=== PATIENT | female | born 1945 | race Caucasian/White ===

== ENCOUNTER 2024-01-07 18:55 | Inpatient (IN) | payer OTHER, SELFPAY ==
[2024-01-07 14:57] VITALS: BP 156/87; BMI 41.0
[2024-01-07 15:00] VITALS: BP 156/87
[2024-01-07 15:17] LABS: % Basophils 0.2 % (0-2); % Eosinophils 0.1 % (0-6); % Immature Granulocytes 0.7 % (0-0.5); % Lymphocytes 5.5 % (20.5-51.1); % Monocytes 5.8 % (1.7-9.3); % Neutrophils 87.7 % (42.2-75.2); Absolute Immature Granulocytes 0.1 10^3/uL (0-0.05); Absolute Monocytes 1.1 10^3/uL (0.1-0.6); Absolute Neutrophils 16.2 10^3/uL (1.4-6.5); Hematocrit 39.5 % (37.0-47.0); Hemoglobin 13.4 g/dL (12.0-16.0); Mean Corp Hgb Conc. 33.9 g/dL (33.0-37.0); Mean Corpuscular Hgb 29.4 pg (27.0-31.0); Mean Corpuscular Volume 86.6 fL (81.0-99.0); Mean Platelet Volume 9.5 fL (7.4-10.4); Nucleated Red Blood Cells % 0 %; Platelet Count 257 10^3/uL (130-400); Red Blood Cell Count 4.56 10^6/uL (4.20-5.40); White Blood Cell Count 18.4 10^3/uL (4.8-10.8)
[2024-01-07] MEDS: TYLENOL 650 MG PO ×2 (15:18→21:17)
[2024-01-07 15:29] LABS: ALT (SGPT) 17 U/L (0-35); AST (SGOT) 24 U/L (14-36); Albumin 4.3 g/dl (3.5-5.0); Alkaline Phosphatase 122 U/L (38-126); Blood Urea Nitrogen 24 mg/dl (7-17); Calcium 9.3 mg/dl (8.4-10.2); Carbon Dioxide 26 mmol/L (22-30); Chloride 92 mmol/L (98-107); Estimated Creatinine Clearance 45 ml/min; Glucose 200 mg/dl (70-99); Potassium 3.7 mmol/L (3.5-5.1); Sodium 130 mmol/L (135-145); Total Bilirubin 0.9 mg/dl (0.2-1.3); Total Protein 7.3 g/dl (6.3-8.2); eGFR 46.91
[2024-01-07 15:38] LABS: Lactic Acid 2.3 mmol/L (0.7-2.0)
[2024-01-07 15:43] LABS: COVID-19 Antigen Negative (Negative)
--- NOTE | 2024-01-07 16:01 | ED.GENMED ---
History of Present Illness
General
Chief Complaint: Cold/Flu/URI Symptoms
Source: patient
Time Seen by Provider: 01/07/24 15:07
Travel History
Have you had any contact with someone who has COVID-19?: No
Do you have any symptoms of coronavirus? Fever > 100 degrees, chills, cough, shortness of breath, sore throat, loss of taste or smell, muscle aches, or headache?: Yes
Symptoms:: cough, chills
History of Present Illness
History of Present Illness:
78-year-old female presents the emergency room complaining of feeling weak, achy for the past 2 days. Patient has also noted decreased appetite. She is tolerating liquids. She denies any abdominal pain, nausea, vomiting, diarrhea. She denies any
dysuria. She always has urinary frequency due to diuretic usage. She has a chronic cough. She does not think it is any different than normal. However she was noted to be hypoxic on room air and does not use oxygen at home. She was unaware she
had a fever
Past History
Past History
ED Past Medical History: Cancer (ovarian), COPD, HTN and Hypercholesterolemia
ED Past Surgical History: Orthopedic
Social History
Tobacco: Former smoker
Alcohol: None
Drug: None
Personal:
Living: with family
Employment: Retired
Family History
Family History: Other
Phy Exam
Physical Exam
Physical Exam:
General: Awake, Alert, Oriented X3. No acute distress.
Vitals: Febrile, O2 sat 90% on room air
Head: Atraumatic
Eyes: Pupils equal, EOMI
Throat: Airway intact, no exudates, dry mucosa
Neck: Trachea midline
Lungs: Clear and equal b/l
Heart: Regular rate, no murmurs
Abd: Soft, Nontender, No pulsatile mass
Neuro: Nonfocal
Skin: Warm, dry, no rash
Extremities: pulses equal b/l, no edema
Course
Orders/Labs/Results
Orders:
Orders
01/07/24 Dinner
Regular
At Your Request: Limited Participation
Does patient need a safe tray?: No
01/07/24 15:04
Electrocardiogram (*1) Urgent
Reason for Study: Fatigue / Weakness
EKG- Treatment ONCE
01/07/24 15:06
COVID-19 Antigen Urgent
Source: Nasal Swab
Complete Blood Count/With Diff Urgent
Comprehensive Metabolic Panel Urgent
Influenza A+B Rapid Molecular Urgent
SELENA Source: Nasal Swab
Specimen Description:
01/07/24 15:15
Lactic Acid Urgent
Blood Culture Urgent
SELENA Source: Blood/Venous
Specimen Description:
01/07/24 15:17
Acetaminophen [Tylenol] 650 mg .ROUTE .STK-MED ONE
01/07/24 15:18
Acetaminophen [Tylenol] 650 mg PO NOW STA
01/07/24 15:58
0.9% Sodium Chloride 500 ml [Nss] 500 ml IV BOLUS
CR Chest - 2 Views Urgent
Comment:
Reason For Exam: fever, cough, hypoxia
01/07/24 16:57
Urinalysis Reflex To Culture Urgent
Date Specimen was Collected: 01/07/24
Time Specimen was Collected: 15:50
Urine Microscopic Reflex Cult Urgent
Urine Culture Urgent
SELENA Source: U
Specimen Description:
Date Specimen was Collected: 01/07/24
Time Specimen was Collected: 15:50
01/07/24 18:05
CefTRIAXone [Rocephin] 1,000 mg IV NOW STA
01/07/24 18:26
Admit/Transfer Patient As Directed
Co-Sign Provider:
Level of Care: Inpatient admission
Assign to:: Medical/Surgical
Physician / Group: veldanda
Diagnosis: sepsis uti
Reason for Hospitalization: sepsis uti
Expected length of stay greater than two midnights?: Yes
ELOS- Estimated Length of Stay in days: 2
I certify the patient meets the requirements for IP care: Yes
01/07/24 18:27
Code Status As Directed
Resuscitation Status: Full Code
01/07/24 19:45
0.9% Sodium Chloride 1000 ml [Nss] 1,000 ml IV 100 mls/hr
Acetaminophen [Tylenol] 650 mg PO Q4HPRN PRN
Dextrose 50%-Water [Dextrose 50% Syringe] 12.5 grams IV [id number] PRN
Glucagon [GlucaGen] 1 mg IM PRN PRN
Ipratropium/Albuterol Sulfate [Duoneb] 3 ml INH R Q4HPRN PRN
01/07/24 19:45
Activity As Directed
Activity Level: As Tolerated
Bedside Glucose Monitoring As Directed
Frequency: AC&HS
Comment: Change to q6h if pt on TPN, tube feeding or not eating
Vital Signs As Directed
Frequency: Per unit guidelines
DX Deep Vein Thrombosis Video Routine
01/07/24 20:00
Calcium Carbonate [Oscal Vince 500] 500 mg PO BID
Heparin 5,000 units SC Q12
01/07/24 22:00
Pravastatin Sodium [Pravachol] 40 mg PO HS
01/08/24 06:00
Complete Blood Count/With Diff IN AM
Comprehensive Metabolic Panel IN AM
Glycohemoglobin (HgbA1c) IN AM
01/08/24 07:30
Insulin Aspart Corrective Low [Novolog Flexpen-Low Resistance] See Protocol SC AC
01/08/24 08:00
Allopurinol [Zyloprim] 100 mg PO DAILY
Aspirin Low Dose EC [Aspir Low (Enteric Coated)] 81 mg PO DAILY
Cholecalciferol (Vitamin D3) [VITAMIN D3 (cholecalciferol)] 25 mcg PO DAILY
Diltiazem Extended Release [Cardizem Cd] 120 mg PO DAILY
Docusate W/Senna [Senokot-S] 1 tablet PO DAILY
Metoprolol Xl [Toprol Xl] 100 mg PO DAILY
Potassium Chloride [KCl] 10 meq PO DAILY
Vit C/Vit E/Lutein/Min/[place]-3 [Ocuvite Softgel] 1 cap PO DAILY
01/08/24 18:00
CefTRIAXone [Rocephin] 1,000 mg IV Q24H
Abnormal Lab Results
01/07/24 01/07/24 01/07/24
15:06 15:15 16:57
WBC 18.4 H 10^3/uL
(4.8-10.8)
RDW 15.0 H %
(11.5-14.5)
Abs Immat Gran (auto) 0.1 H 10^3/uL
(0-0.05)
Absolute Neuts (auto) 16.2 H 10^3/uL
(1.4-6.5)
Absolute Lymphs (auto) 1.0 L 10^3/uL
(1.2-3.4)
Absolute Monos (auto) 1.1 H 10^3/uL
(0.1-0.6)
Immature Gran % 0.7 H %
(0-0.5)
Neutrophils % 87.7 H %
(42.2-75.2)
Lymphocytes % 5.5 L %
(20.5-51.1)
Sodium 130 L mmol/L
(135-145)
Chloride 92 L mmol/L
(98-107)
BUN 24 H mg/dl
(7-17)
Creatinine 1.2 H mg/dL
(0.6-1.0)
Glucose 200 H mg/dl
(70-99)
Lactic Acid 2.3 H mmol/L
(0.7-2.0)
Urine Nitrite (Reflex) Positive A
(Negative)
Leukocyte Esterase Rfl 2+ A
(Negative)
Urine WBC (Reflex) 50-60 A /HPF
(0-5)
Urine Bacteria (Reflex) Many A
(Negative)
01/07/24 15:06
01/07/24 15:06
Vital Signs
Initial and Last Documented VS:
Initial Vital Signs
Temp Pulse Resp BP Pulse Ox
103.2 F H 94 30 156/87 90
01/07/24 14:57 01/07/24 14:57 01/07/24 14:57 01/07/24 14:57 01/07/24 14:57
Last Documented Vital Signs
Temp Pulse Resp BP Pulse Ox
99.9 F 99 20 126/70 96
01/07/24 20:01 01/07/24 20:01 01/07/24 20:01 01/07/24 20:01 01/07/24 20:01
MDM/Problems Addressed
Differential Diagnosis Includes:
Pneumonia, viral syndrome, UTI
MDM/Problems Addressed:
Patient presents with significant fever of 104. Labs show a significant elevated white blood cell count of 18.4, chemistries show mildly elevated BUN/creatinine. Lactate is 2.3. Urinalysis highly suggestive of a urinary tract infection. Patient
started on IV Rocephin. She will require hospitalization given her high fever, infection lives alone and generalized weakness and inability to care for herself
Chronic conditions affecting care: HTN and COPD
*Radiology
Radiology exam reviewed: preliminary read by ED provider (Personally viewed the patient's chest x-ray see no acute disease)
*Pulse Oximetry
Patient hypoxic: no
*EKG
Interpretation: normal
Heart Rate: 94
Rate: normal
Rhythm: sinus
[place]: normal axis
Interval: normal interval
QRS Pattern: normal QRS
Ischemia: no ischemia
*Radiator Tester Interpretation
Rate: normal
Interpretation: normal
Rhythm: sinus
*Critical Care Note
Total Time (30-74mins, 75-104mins- exclusive of procedures): Not Applicable
Patient Management
Social determinants of health affecting care: Living situation (Lives alone)
Discussion with other providers: Hospitalist
ED Attending Note
-
Portions of this chart may have been created with voice recognition software.� Occasional wrong word or��sound alike� substitutions may have occurred due to the inherent limitations of voice recognition software.
Discharge Plan
Departure
Patient Disposition: Admit
Date of Disposition: 01/07/24
Time of Disposition: 18:06
Admit to: Med/Surg
Presentation/result/management discussed w/ accepting MD/DO: Hospitalist
Condition: Fair
Discharge Problem:
Acute UTI
Interventions
Interventions:
*Risk Screen - Suicide Last Done: 01/07/24 15:02
*General Assessment Last Done: 01/07/24 15:02
*Neglect/Abuse Screening Last Done: 01/07/24 15:02
ED- Fall Risk Assessment Last Done: 01/07/24 19:37
*ED COVID-19 Vaccine History Last Done: 01/07/24 15:02
*Nursing Disposition Last Done: 01/07/24 19:37
ED- Pulmonary Assessment Last Done: 01/07/24 15:25
Discharge Date and Time
Discharge Date/Time: 01/07/24 19:38
[2024-01-07] MEDS: NSS 500 IV (16:05)
[2024-01-07 17:08] LABS: Urine Albumin Trace (Neg - Trace); Urine Bilirubin Negative (Negative); Urine Character Clear (Clear); Urine Color Yellow; Urine Glucose Negative (Negative); Urine Ketone Negative (Negative); Urine Leukocyte 2+ (Negative); Urine Nitrite Positive (Negative); Urine Occult Blood Negative (Negative); Urine Urobilinogen Negative (Neg - 1+)
[2024-01-07 17:15] LABS: Urine Red Blood Cell 0-2 /HPF (0-2)
[2024-01-07 17:16] LABS: Urine Bacteria Many (Negative); Urine White Cell 50-60 /HPF (0-5)
[2024-01-07 18:00] VITALS: BP 127/96
[2024-01-07] MEDS: ROCEPHIN 1000 MG IV (18:14)
--- NOTE | 2024-01-07 18:30 | HPS.HSE ---
Addendum entered and electronically signed by Dallas Chappell MD 01/07/24 18:33:
Hypoxia could be from tachypnea from sepsis. Continue to treat UTI and wean oxygen.
Original Note:
Family Physician
-
Family Physician: NOT KNOW UNKNOWN - PT DOES
Chief Complaint
-
weakness
History of Present Illness
78-year-old female past medical history of CKD 3, diabetes, peripheral neuropathy, COPD, hypertension, hypercholesteremia, ovarian cancer, gout, presenting for weakness and generalized body achiness for the past 2 days as well as decreased appetite.
Denies any abdominal pain or nausea or vomiting or diarrhea. Denies any new urinary symptoms although she always has urinary frequency due to diuretic use. She has chronic cough which is unchanged from usual and dry. No sore throat or runny
nose. She was noted to be hypoxic on room air. She has chronic shortness of breath that is unchanged from usual. She was unaware of having a fever. No sick contacts.
Did have some chest aches and bilateral hip pain. She supposed to have right hip replaced she is recommended to lose weight before they do this.
She is a former smoker. Denies alcohol use.
Medical History
Past Medical History
Past Medical History: Reports Other (CKD 3, diabetes, peripheral neuropathy, COPD, hypertension, hypercholesteremia, ovarian cancer, gout)
Past Surgical History: Reports None
Social History
Tobacco: Former Smoker
Alcohol: None
Drug: None
Family History
Family History: Not pertinent
Allergies / Home Medications
Allergies reflects when Allergies were last updated in [employer].
Home Medications with original date entered in [employer]
Allergy/Medication List:
Allergies
Allergy/AdvReac Type Severity Reaction Status Date / Time
No Known Allergies Allergy Verified 05/23/23 18:38
Home Medications
furosemide 40 mg tablet 40 mg PO DAILY Fluid retention/Swelling 07/09/21
metformin 1,000 mg tablet 1,000 mg PO BID Diabetes 07/09/21
potassium chloride 10 mEq capsule,extended release 10 meq PO DAILY Electrolyte Repletion 07/09/21
pravastatin 40 mg tablet 40 mg PO HS High cholesterol 07/09/21
metoprolol succinate 100 mg tablet,extended release 24 hr 100 mg PO DAILY Blood pressure 05/23/22
diltiazem HCl 120 mg capsule,extended release 24 hr 120 mg PO DAILY 30 days #30 caps 05/28/22
albuterol sulfate 90 mcg/actuation aerosol inhaler 2 puff inhalation R Q6 PRN sob/wheezing 05/23/23
allopurinol 100 mg tablet 100 mg PO DAILY Gout 05/23/23
aspirin 81 mg tablet,delayed release 81 mg PO DAILY 01/07/24
budesonide 160 mcg-glycopyr 9 mcg-formot 4.8 mcg/actuation HFA inhaler (Breztri Aerosphere) 2 inh inhalation R BID 01/07/24
calcium carbonate 500 mg PO BID 01/07/24
cholecalciferol (vitamin D3) 25 mcg (1,000 unit) tablet (Vitamin D3) 25 mcg PO DAILY 01/07/24
cicbfftd-otc-KZ 0.4 mg-calcium 162 mg-iron 18 lf-jjhvvto-qyglyj tablet 1 tab PO DAILY 01/07/24
sennosides 8.6 mg-docusate sodium 50 mg tablet (Senna-S) 1 tab-cap PO DAILY 01/07/24
Review of Systems
-
History Source: Patient
A 12 point ROS was completed and negative except as noted: Yes
Constitutional: Reports No Symptoms
EENT: Reports No Symptoms
Respiratory: Reports No Symptoms
Cardiac: Reports No Symptoms
Abdomen/GI: Reports No Symptoms
: Reports No Symptoms
Musculoskeletal: Reports No Symptoms
Skin: Reports No Symptoms
Neurological: Reports No Symptoms
Endocrine: Reports No Symptoms
Hematologic/Lymphatic: Reports No Symptoms
Psych: Reports No Symptoms
Physical Exam
Vital Signs
Vital Signs
Temp Pulse Resp BP Pulse Ox
103.2 F H 87 22 127/96 93
01/07/24 14:57 01/07/24 18:15 01/07/24 18:15 01/07/24 18:00 01/07/24 18:15
Physical Exam
General: Well Developed, Well Nourished and No Apparent Distress
HEENT: NormoCephalic, Moist mucous membranes and Atraumatic
Respiratory: Clear
Cardiac: S1/S2 and Regular Rhythm; No Murmur or Rub
GI: Soft, Non Tender, Non Distended and Normal Bowel Sounds; No Organomegaly
Rectal: Deferred by Provider
Musculoskeletal: No Clubbing, No Cyanosis and No Edema
Skin: No Rash
Neuro: Nonfocal/grossly intact
Laboratory Results
-
01/07/24 15:06
01/07/24 15:06
Laboratory Results
Lactic Acid 2.3 mmol/L (0.7-2.0) H 01/07/24 15:15
Total Bilirubin 0.9 mg/dl (0.2-1.3) 01/07/24 15:06
AST 24 U/L (14-36) 01/07/24 15:06
ALT 17 U/L (0-35) 01/07/24 15:06
Alkaline Phosphatase 122 U/L (38-126) 01/07/24 15:06
Data Reviewed
-
Lab Data: Labs Reviewed by me
Old Records: Reviewed
Impression/Plan
-
IMPRESSION:
PLAN:
# Sepsis (fever, leukocytosis, tachycardia, tachypnea) secondary to urinary tract infection
-UA shows 50-60 WBC, positive nitrates, leukocyte esterase
-Check urine, blood cultures
-IV fluids
-Hold Lasix which she takes for lower extremity edema
-Ceftriaxone
-COVID influenza negative
-Chest x-ray unremarkable
COPD
-Lungs sound clear, not in COPD exacerbation
-CXR clear
-Currently requiring 2 L oxygen however
-DuoNebs every 6 hours as needed
-Continue inhalers
CKD 3
-Renal function at baseline at 1.2 creatinine
Type 2 diabetes
-Hold metformin
-Insulin sliding scale
Peripheral neuropathy
Essential hypertension
-Continue prophylactic aspirin
-Continue diltiazem
-Continue metoprolol
Hypercholesterolemia
-Continue statin
Ovarian cancer
Gout
-Continue allopurinol
Chronic lower extremity edema
-Hold Lasix
Full code
DVT prophylaxis�heparin
Regular diet
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
[2024-01-07 20:01] VITALS: BP 126/70; BMI 39.8
[2024-01-07] MEDS: NSS 1000 IV (21:06)
[2024-01-07] MEDS: PRAVACHOL 40 MG PO (21:17)
[2024-01-07] MEDS: HEPARIN 5000 UNITS SC (21:18)
[2024-01-07] MEDS: OSCAL CAL 500 500 MG PO (21:18)
[2024-01-07 21:20] LABS: Glucose - Point of Care 193 mg/dl (70-99)
[2024-01-07] MEDS: DESENEX/MITRAZOL/ZEASORB 1 APPLIC TOPICAL (23:00)
[2024-01-07 23:33] VITALS: BP 138/68
[2024-01-08] MEDS: SYMBICORT 160/4.5 MCG INHALER INH (00:51)
[2024-01-08 03:11] VITALS: BP 138/95
[2024-01-08 06:17] LABS: % Basophils 0.3 % (0-2); % Eosinophils 0.1 % (0-6); % Immature Granulocytes 0.5 % (0-0.5); % Neutrophils 77.1 % (42.2-75.2); Absolute Immature Granulocytes 0.1 10^3/uL (0-0.05); Absolute Lymphocytes 1.9 10^3/uL (1.2-3.4); Absolute Monocytes 1.3 10^3/uL (0.1-0.6); Absolute Neutrophils 11.5 10^3/uL (1.4-6.5); Hemoglobin 11.3 g/dL (12.0-16.0); Mean Corp Hgb Conc. 34.2 g/dL (33.0-37.0); Mean Corpuscular Hgb 29.5 pg (27.0-31.0); Mean Corpuscular Volume 86.2 fL (81.0-99.0); Mean Platelet Volume 9.9 fL (7.4-10.4); Nucleated Red Blood Cells % 0 %; Platelet Count 182 10^3/uL (130-400); Red Blood Cell Count 3.83 10^6/uL (4.20-5.40); Red Cell Dist. Width 14.8 % (11.5-14.5); White Blood Cell Count 14.9 10^3/uL (4.8-10.8)
[2024-01-08 06:40] LABS: ALT (SGPT) 12 U/L (0-35); AST (SGOT) 19 U/L (14-36); Albumin 3.4 g/dl (3.5-5.0); Alkaline Phosphatase 101 U/L (38-126); Blood Urea Nitrogen 26 mg/dl (7-17); Calcium 8.6 mg/dl (8.4-10.2); Carbon Dioxide 27 mmol/L (22-30); Chloride 98 mmol/L (98-107); Estimated Creatinine Clearance 44 ml/min; Glucose 157 mg/dl (70-99); Potassium 3.7 mmol/L (3.5-5.1); Sodium 131 mmol/L (135-145); Total Bilirubin 0.5 mg/dl (0.2-1.3); Total Protein 6.1 g/dl (6.3-8.2); eGFR 46.91
[2024-01-08 07:05] LABS: Glucose - Point of Care 168 mg/dl (70-99)
[2024-01-08] MEDS: SYMBICORT 160/4.5 MCG INHALER 2 PUFF INH ×2 (07:20→19:42)
[2024-01-08] MEDS: SPIRIVA RESPIMAT 2.5 MCG 2 PUFF INH (07:20)
[2024-01-08] MEDS: NSS 1000 IV (07:31)
[2024-01-08 08:14] VITALS: BP 124/56
[2024-01-08] MEDS: CARDIZEM CD 120 MG PO (08:56)
[2024-01-08] MEDS: TOPROL XL 100 MG PO (08:56)
[2024-01-08] MEDS: OSCAL CAL 500 500 MG PO ×2 (08:56→20:20)
[2024-01-08] MEDS: OCUVITE SOFTGEL 1 CAP PO (08:56)
[2024-01-08] MEDS: ASPIR LOW (ENTERIC COATED) 81 MG PO (08:56)
[2024-01-08] MEDS: NOVOLOG FLEXPEN-LOW RESISTANCE 1 UNITS SC (08:56)
[2024-01-08] MEDS: ZYLOPRIM 100 MG PO (08:56)
[2024-01-08] MEDS: SENOKOT-S 1 TABLET PO (08:56)
[2024-01-08] MEDS: VITAMIN D3 (cholecalciferol) 25 MCG PO (08:57)
[2024-01-08] MEDS: KCL 10 MEQ PO (08:57)
[2024-01-08] MEDS: HEPARIN 5000 UNITS SC ×2 (08:57→20:21)
[2024-01-08] MEDS: DESENEX/MITRAZOL/ZEASORB 1 APPLIC TOPICAL ×2 (08:59→21:43)
--- NOTE | 2024-01-08 09:01 | W.PN.HOSP.TC ---
Today's Communication/Plan
-
USS
Await Cx
Continue AB
Stop IVF
Assessment / Plan
Assessment / Plan
78-year-old female with generalized weakness and bodyaches for the 2 days decreased appetite.
Feels better
CVS: S1-S2 normal
Chest: CTA B/L
Abdomen: Soft, NT / Bowel sounds present
Extremities: No edema, normal pulses
# Sepsis present on admission
Likely source is UTI
Ceftriaxone
Await cultures blood and urine
Urine cultures with gram-negative rods
Hold Lasix
Status post gentle IV fluids
Leukocytosis better
Ultrasound of the kidneys and bladder
# Mild lactic acidosis-repeat lactate normal.
# COPD
Acute hypoxic respiratory insufficiency likely secondary to sepsis
Off oxygen
Continue Breztri or equivalent.
DuoNebs as needed
Chest x-ray clear
# CKD stage III
# Mild hyponatremia-stop IV fluids and watch
# Type 2 diabetes-hold metformin
Sliding scale coverage
HBA1C 6.4
# Peripheral neuropathy likely from diabetes
# Hypertension-continue metoprolol and diltiazem
# Hyperlipidemia-continue statin
# History of ovarian cancer
History of hysterectomy and bilateral oophorectomy
Follows up with Dr. Guo
CAT scan abdomen and pelvis 03/24/2023-stable
# Chronic lower extremity edema-hold Lasix now
# 7 mm left upper lobe pulmonary nodule, 1 mm left lower lobe pulmonary nodule, 1.5 cm aortopulmonary window lymph node and 2.8 cm right adrenal mass-likely benign per PET scan
# Gout-continue allopurinol
# Obesity BMI 39.7
# Ex-smoker
# DVT prophylaxis-subcutaneous heparin
# Full code
Discussed with nursing
Called Daughter- went to message .
Part of this note was created using voice recognition system. Occasional wrong word or��sound alike� substitutions may have inadvertently occurred due to the inherent limitations of voice recognition software. If noted kindly bring it to my
attention for correction.
Anticipated Discharge: 24 - 48 hours
Subjective/Interval History
-
Date of Service: January 08, 2024
Objective Data
-
Labs:
Laboratory Results
01/08/24
05:36
WBC 14.9 H
Hgb 11.3 L
Hct 33.0 L
Plt Count 182 D
Sodium 131 L
Potassium 3.7
Chloride 98
Carbon Dioxide 27
BUN 26 H
Creatinine 1.2 H
Glucose 157 H
Calcium 8.6
Total Bilirubin 0.5
AST 19
ALT 12
Alkaline Phosphatase 101
Vital Signs:
Vital Signs
Temp Pulse Resp BP Pulse Ox
98.7 F 85 20 124/56 95
01/08/24 08:14 01/08/24 08:14 01/08/24 08:14 01/08/24 08:14 01/08/24 08:14
I&O
01/07/24 01/08/24 01/09/24
06:59 06:59 06:59
Intake Total 1280 / 1280
Output Total 100 / 100
Balance 1180 / 1180
[2024-01-08 10:39] LABS: Magnesium 1.8 mg/dl (1.6-2.3)
[2024-01-08 11:34] LABS: Vitamin B12 396 pg/ml (239-931)
[2024-01-08 11:55] LABS: Glucose - Point of Care 140 mg/dl (70-99)
[2024-01-08 12:03] LABS: Glycohemoglobin (HgbA1c) 6.4 % (4.0-5.6)
[2024-01-08] MEDS: NOVOLOG FLEXPEN-LOW RESISTANCE SC ×2 (12:12→18:39)
[2024-01-08 15:30] VITALS: BP 122/56
[2024-01-08 16:52] LABS: Glucose - Point of Care 141 mg/dl (70-99)
[2024-01-08] MEDS: VITAMIN B-12 1000 MCG PO (18:39)
[2024-01-08] MEDS: ROCEPHIN 1000 MG IV (18:40)
[2024-01-08] MEDS: STERILE WATER FOR INJECTION 10 ML IV (18:41)
[2024-01-08] MEDS: FLUSH (NSS) 1 FLUSH IV (18:42)
[2024-01-08 21:32] LABS: Glucose - Point of Care 188 mg/dl (70-99)
[2024-01-08] MEDS: PRAVACHOL 40 MG PO (21:34)
[2024-01-08 23:48] VITALS: BP 129/58
[2024-01-09 06:12] LABS: Hematocrit 30.5 % (37.0-47.0); Hemoglobin 10.4 g/dL (12.0-16.0); Mean Corp Hgb Conc. 34.1 g/dL (33.0-37.0); Mean Corpuscular Hgb 29.3 pg (27.0-31.0); Mean Corpuscular Volume 85.9 fL (81.0-99.0); Mean Platelet Volume 10.1 fL (7.4-10.4); Platelet Count 210 10^3/uL (130-400); Red Blood Cell Count 3.55 10^6/uL (4.20-5.40); Red Cell Dist. Width 14.8 % (11.5-14.5); White Blood Cell Count 8.7 10^3/uL (4.8-10.8)
[2024-01-09 06:41] LABS: Blood Urea Nitrogen 19 mg/dl (7-17); Calcium 8.7 mg/dl (8.4-10.2); Carbon Dioxide 23 mmol/L (22-30); Chloride 102 mmol/L (98-107); Estimated Creatinine Clearance 58 ml/min; Glucose 165 mg/dl (70-99); Magnesium 1.9 mg/dl (1.6-2.3); Potassium 3.5 mmol/L (3.5-5.1); Sodium 132 mmol/L (135-145); eGFR > 60.00
[2024-01-09] MEDS: SPIRIVA RESPIMAT 2.5 MCG 2 PUFF INH (07:19)
[2024-01-09] MEDS: SYMBICORT 160/4.5 MCG INHALER 2 PUFF INH ×2 (07:19→20:07)
[2024-01-09 07:47] VITALS: BP 120/67
[2024-01-09 08:37] LABS: Glucose - Point of Care 173 mg/dl (70-99)
[2024-01-09] MEDS: NOVOLOG FLEXPEN-LOW RESISTANCE 1 UNITS SC ×3 (09:21→18:08)
[2024-01-09] MEDS: TYLENOL 650 MG PO ×2 (09:23→18:16)
[2024-01-09] MEDS: TOPROL XL 100 MG PO (09:24)
[2024-01-09] MEDS: OCUVITE SOFTGEL 1 CAP PO (09:24)
[2024-01-09] MEDS: CARDIZEM CD 120 MG PO (09:26)
[2024-01-09] MEDS: ASPIR LOW (ENTERIC COATED) 81 MG PO (09:26)
[2024-01-09] MEDS: VITAMIN B-12 1000 MCG PO (09:28)
[2024-01-09] MEDS: KCL 10 MEQ PO (09:29)
[2024-01-09] MEDS: SENOKOT-S 1 TABLET PO (09:30)
[2024-01-09] MEDS: VITAMIN D3 (cholecalciferol) 25 MCG PO (09:31)
[2024-01-09] MEDS: OSCAL CAL 500 500 MG PO ×2 (09:31→20:05)
[2024-01-09] MEDS: HEPARIN 5000 UNITS SC ×2 (09:32→20:05)
[2024-01-09] MEDS: ZYLOPRIM 100 MG PO (09:32)
[2024-01-09] MEDS: DESENEX/MITRAZOL/ZEASORB 1 APPLIC TOPICAL ×2 (09:33→20:05)
--- NOTE | 2024-01-09 11:12 | CM ---
CM following re: d/c planning
Chart reviewed
CM met with patient at bedside; IA completed
Pt states she and her daughter reside in a 1 story rancher with ramp access
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
Pt has previous SNF hx and has been to [facility], has recent hx with Kristie MATHEW, and has a spc for use as needed
Pt confirms prescription coverage and rx's are filled at [facility] on [facility] [address]
Pt PCP-[facility] and the patent sees Teri Matos PA-C and for maintenance medications pt states they are mail ordered through [facility]
No needs are anticipated once stable for d/c, CM will continue to watch for needs and request a script for a walker if needed
PLAN; d/c home no needs anticipated
[2024-01-09 11:30] VITALS: BP 147/71
[2024-01-09 12:03] LABS: Glucose - Point of Care 169 mg/dl (70-99)
[2024-01-09 12:20] VITALS: PULSE 75; O2SAT 91
--- NOTE | 2024-01-09 15:25 | W.PN.HOSP.TC ---
Today's Communication/Plan
-
CXR
Continue AB
Discharge planing
Assessment / Plan
Assessment / Plan
78-year-old female with generalized weakness and bodyaches for the 2 days decreased appetite.
Feels better
CVS: S1-S2 normal
Chest: CTA B/L
Abdomen: Soft, NT / Bowel sounds present
Extremities: No edema, normal pulses
# Sepsis present on admission
Likely source is Klebsiella UTI
Ceftriaxone to be continued
BC neg
Hold Lasix
Status post gentle IV fluids
Leukocytosis better
Ultrasound of the kidneys and bladder neg
# Mild lactic acidosis-repeat lactate normal.
# COPD
Acute hypoxic respiratory insufficiency likely secondary to sepsis
Off oxygen
Continue Breztri or equivalent.
DuoNebs as needed
Chest x-ray clear, pt says she has adeveloped a cough
Rpt CXR
# CKD stage III
# Mild hyponatremia-stop IV fluids and watch
Improving.
# Type 2 diabetes-restart metformin
Sliding scale coverage
HBA1C 6.4
# Peripheral neuropathy likely from diabetes
# Hypertension-continue metoprolol and diltiazem
# Hyperlipidemia-continue statin
# History of ovarian cancer
History of hysterectomy and bilateral oophorectomy
Follows up with Dr. Guo
CAT scan abdomen and pelvis 03/24/2023-stable
# Chronic lower extremity edema-hold Lasix now
# 7 mm left upper lobe pulmonary nodule, 1 mm left lower lobe pulmonary nodule, 1.5 cm aortopulmonary window lymph node and 2.8 cm right adrenal mass-likely benign per PET scan
# Gout-continue allopurinol
# Obesity BMI 39.7
# Ex-smoker
# DVT prophylaxis-subcutaneous heparin
# Full code
Discussed with nursing
Called daughter , went to message again
Part of this note was created using voice recognition system. Occasional wrong word or��sound alike� substitutions may have inadvertently occurred due to the inherent limitations of voice recognition software. If noted kindly bring it to my
attention for correction.
Anticipated Discharge: Within 24 hours
Subjective/Interval History
-
Date of Service: January 09, 2024
Objective Data
-
Labs:
Laboratory Results
01/09/24
05:27
WBC 8.7
Hgb 10.4 L
Hct 30.5 L
Plt Count 210
Sodium 132 L
Potassium 3.5
Chloride 102
Carbon Dioxide 23
BUN 19 H
Creatinine 0.9
Glucose 165 H
Calcium 8.7
Vital Signs:
Vital Signs
Temp Pulse Resp BP Pulse Ox
98.2 F 75 15 147/71 92
01/09/24 11:30 01/09/24 11:30 01/09/24 11:30 01/09/24 11:30 01/09/24 11:45
I&O
01/08/24 01/09/24 01/10/24
06:59 06:59 06:59
Intake Total 1280 / 1280 600 / 600
Output Total 100 / 100 300 / 300
Balance 1180 / 1180 300 / 300
[2024-01-09 15:30] VITALS: BP 128/68
[2024-01-09 17:39] LABS: Glucose - Point of Care 157 mg/dl (70-99)
[2024-01-09] MEDS: STERILE WATER FOR INJECTION 10 ML IV (18:07)
[2024-01-09] MEDS: ROCEPHIN 1000 MG IV (18:07)
[2024-01-09] MEDS: FLUSH (NSS) 2 FLUSH IV (18:08)
[2024-01-09] MEDS: PRAVACHOL 40 MG PO (20:05)
[2024-01-09 22:07] LABS: Glucose - Point of Care 178 mg/dl (70-99)
[2024-01-09 23:59] VITALS: BP 154/81
[2024-01-10 04:00] VITALS: BP 179/89
[2024-01-10] MEDS: TYLENOL 650 MG PO ×2 (04:59→17:37)
[2024-01-10 07:10] VITALS: BP 131/76
[2024-01-10 07:10] LABS: Glucose - Point of Care 185 mg/dl (70-99)
[2024-01-10] MEDS: SPIRIVA RESPIMAT 2.5 MCG 2 PUFF INH (07:33)
[2024-01-10] MEDS: SYMBICORT 160/4.5 MCG INHALER 2 PUFF INH ×2 (07:33→20:18)
[2024-01-10] MEDS: CARDIZEM CD 120 MG PO (09:36)
[2024-01-10] MEDS: OCUVITE SOFTGEL 1 CAP PO (09:41)
[2024-01-10] MEDS: ZYLOPRIM 100 MG PO (09:41)
[2024-01-10] MEDS: VITAMIN B-12 1000 MCG PO (09:41)
[2024-01-10] MEDS: TOPROL XL 100 MG PO (09:41)
[2024-01-10] MEDS: KCL 10 MEQ PO (09:42)
[2024-01-10] MEDS: ASPIR LOW (ENTERIC COATED) 81 MG PO (09:42)
[2024-01-10] MEDS: HEPARIN 5000 UNITS SC ×2 (09:42→20:50)
[2024-01-10] MEDS: VITAMIN D3 (cholecalciferol) 25 MCG PO (09:42)
[2024-01-10] MEDS: SENOKOT-S 1 TABLET PO (09:43)
[2024-01-10] MEDS: OSCAL CAL 500 500 MG PO ×2 (09:45→20:50)
[2024-01-10] MEDS: NOVOLOG FLEXPEN-LOW RESISTANCE 1 UNITS SC ×2 (09:54→13:09)
[2024-01-10] MEDS: DESENEX/MITRAZOL/ZEASORB 1 APPLIC TOPICAL ×2 (10:36→20:49)
--- NOTE | 2024-01-10 11:03 | W.PN.HOSP.TC ---
Addendum entered and electronically signed by Murray Vu MD 01/10/24 11:25:
Spoke to patient's other daughter Su Odom [phone]
Updated patient's chest x-ray, urine findings, oxygen
She stated that patient is not very active. She does not eat right. She drinks soda and soda water all day.
She is concerned that her sister who patient lives with works 2 jobs and sleeps during the daytime.
She requested a call from oncology social worker which I will pass on
Original Note:
Today's Communication/Plan
-
Restart Lasix
Labs
Watch patient
Wean oxygen as tolerated
Discharge planning hopefully discharge tomorrow.
Assessment / Plan
Assessment / Plan
78-year-old female with generalized weakness and bodyaches for the 2 days decreased appetite.
Has a ESTRADA
CVS: S1-S2 normal
Chest: CTA B/L
Abdomen: Soft, NT / Bowel sounds present
Extremities: No edema, normal pulses
# Sepsis present on admission
Likely source is Klebsiella UTI
CXR with small UL PNA
Ceftriaxone to be continued, Added Zithromax
BC neg
Status post gentle IV fluids, now restart Lasix
Leukocytosis better
Ultrasound of the kidneys and bladder neg
# Mild lactic acidosis-repeat lactate normal.
# COPD
Acute hypoxic respiratory insufficiency likely secondary to sepsis
Off oxygen
Continue Breztri or equivalent.
DuoNebs as needed
Chest x-ray with [facility] Infiltrate
Pt aware to repeat as OP in 4 weeks
# Acute hypoxic respiratory insufficiency
Wean oxygen as tolerated sleep study as outpatient
# CKD stage III
# Mild hyponatremia-stop IV fluids and watch
Improving.
# Type 2 diabetes-restart metformin
Sliding scale coverage
HBA1C 6.4
# Peripheral neuropathy likely from diabetes
# Hypertension-continue metoprolol and diltiazem
BP slightly high
Likely secondary to volume
Will add Lasix back
# Hyperlipidemia-continue statin
# History of ovarian cancer
History of hysterectomy and bilateral oophorectomy
Follows up with Dr. Guo
CAT scan abdomen and pelvis 03/24/2023-stable
# Chronic lower extremity edema- Lasix
# 7 mm left upper lobe pulmonary nodule, 1 mm left lower lobe pulmonary nodule, 1.5 cm aortopulmonary window lymph node and 2.8 cm right adrenal mass-likely benign per PET scan
# Gout-continue allopurinol
# Obesity BMI 39.7
# Ex-smoker
# DVT prophylaxis-subcutaneous heparin
# Full code
Discussed with nursing
Left a message again for daughter 3 days in a row today.
Part of this note was created using voice recognition system. Occasional wrong word or��sound alike� substitutions may have inadvertently occurred due to the inherent limitations of voice recognition software. If noted kindly bring it to my
attention for correction.
Anticipated Discharge: Within 24 hours
Subjective/Interval History
-
Date of Service: January 10, 2024
Objective Data
-
Labs:
Laboratory Results
01/10/24
10:49
WBC Pending
Hgb Pending
Hct Pending
Plt Count Pending
Sodium Pending
Potassium Pending
Chloride Pending
Carbon Dioxide Pending
BUN Pending
Creatinine Pending
Glucose Pending
Calcium Pending
Vital Signs:
Vital Signs
Temp Pulse Resp BP Pulse Ox
98.7 F 94 16 170/80 94
01/10/24 07:10 01/10/24 09:36 01/10/24 07:37 01/10/24 09:36 01/10/24 07:37
I&O
03/29/24 03/30/24 03/31/24
06:59 06:59 06:59
Intake Total 600 / 600 940 / 940 480 / 480
Output Total 300 / 300
Balance 300 / 300 940 / 940 480 / 480
[2024-01-10] MEDS: ZITHROMAX 500 MG PO (11:19)
[2024-01-10] MEDS: LASIX 40 MG PO (11:19)
--- NOTE | 2024-01-10 11:33 | CM ---
As requested from Attending, called patient's daughter, Su Odom @ [phone]
Daughter concerned that mother does not have sufficient support at home from the daughter who lives with her; and inquiring about home assistance options. Private Duty resources provided via text message.
Explained to daughter that PT recommending home health vs. no needs at this time.
CM will continue to follow PT recommendations for needs @ discharge
[2024-01-10 11:52] LABS: Hematocrit 34.5 % (37.0-47.0); Hemoglobin 11.8 g/dL (12.0-16.0); Mean Corp Hgb Conc. 34.2 g/dL (33.0-37.0); Mean Corpuscular Hgb 29.1 pg (27.0-31.0); Mean Platelet Volume 9.7 fL (7.4-10.4); Platelet Count 264 10^3/uL (130-400); Red Blood Cell Count 4.06 10^6/uL (4.20-5.40); Red Cell Dist. Width 14.7 % (11.5-14.5)
[2024-01-10 12:30] LABS: Glucose - Point of Care 161 mg/dl (70-99)
[2024-01-10 15:00] VITALS: BP 136/69
[2024-01-10 15:11] LABS: Blood Urea Nitrogen 22 mg/dl (7-17); Calcium 9.5 mg/dl (8.4-10.2); Carbon Dioxide 25 mmol/L (22-30); Chloride 101 mmol/L (98-107); Estimated Creatinine Clearance 58 ml/min; Glucose 119 mg/dl (70-99); Potassium 3.8 mmol/L (3.5-5.1); Sodium 134 mmol/L (135-145); eGFR > 60.00
[2024-01-10 16:41] LABS: Glucose - Point of Care 131 mg/dl (70-99)
[2024-01-10] MEDS: NOVOLOG FLEXPEN-LOW RESISTANCE SC (17:35)
[2024-01-10] MEDS: STERILE WATER FOR INJECTION 10 ML IV (17:36)
[2024-01-10] MEDS: ROCEPHIN 1000 MG IV (17:36)
[2024-01-10] MEDS: PRAVACHOL 40 MG PO (20:50)
[2024-01-10] MEDS: SENOKOT 17.1999999999999993 MG PO (20:50)
[2024-01-10 21:59] LABS: Glucose - Point of Care 162 mg/dl (70-99)
[2024-01-10 23:55] VITALS: BP 128/67
[2024-01-11 07:10] VITALS: BP 154/74
[2024-01-11] MEDS: SYMBICORT 160/4.5 MCG INHALER 2 PUFF INH ×2 (07:26→19:46)
[2024-01-11] MEDS: SPIRIVA RESPIMAT 2.5 MCG 2 PUFF INH (07:26)
[2024-01-11 07:45] LABS: Glucose - Point of Care 155 mg/dl (70-99)
[2024-01-11] MEDS: ZITHROMAX 500 MG PO (08:29)
[2024-01-11] MEDS: OCUVITE SOFTGEL 1 CAP PO (08:29)
[2024-01-11] MEDS: OSCAL CAL 500 500 MG PO ×2 (08:30→20:42)
[2024-01-11] MEDS: ZYLOPRIM 100 MG PO (08:30)
[2024-01-11] MEDS: SENOKOT-S 1 TABLET PO (08:30)
[2024-01-11] MEDS: KCL 10 MEQ PO (08:30)
[2024-01-11] MEDS: CARDIZEM CD 120 MG PO (08:30)
[2024-01-11] MEDS: DESENEX/MITRAZOL/ZEASORB 1 APPLIC TOPICAL ×2 (08:30→20:43)
[2024-01-11] MEDS: TOPROL XL 100 MG PO (08:30)
[2024-01-11] MEDS: VITAMIN D3 (cholecalciferol) 25 MCG PO (08:30)
[2024-01-11] MEDS: VITAMIN B-12 1000 MCG PO (08:30)
[2024-01-11] MEDS: ASPIR LOW (ENTERIC COATED) 81 MG PO (08:30)
[2024-01-11] MEDS: HEPARIN 5000 UNITS SC ×2 (08:31→20:43)
[2024-01-11] MEDS: NOVOLOG FLEXPEN-LOW RESISTANCE 1 UNITS SC (08:38)
[2024-01-11 11:56] LABS: Glucose - Point of Care 259 mg/dl (70-99)
[2024-01-11] MEDS: NOVOLOG FLEXPEN-LOW RESISTANCE 3 UNITS SC (12:49)
[2024-01-11 15:20] VITALS: BP 124/67
[2024-01-11 16:50] LABS: Glucose - Point of Care 127 mg/dl (70-99)
[2024-01-11] MEDS: NOVOLOG FLEXPEN-LOW RESISTANCE SC (17:00)
--- NOTE | 2024-01-11 17:28 | W.PN.HOSP.TC ---
Today's Communication/Plan
-
Lasix
Wean O2 as tolerated
Pulm eval in am
Assessment / Plan
Assessment / Plan
78-year-old female with generalized weakness and bodyaches for the 2 days decreased appetite.
Has a ESTRADA
CVS: S1-S2 normal
Chest: few rales
Abdomen: Soft, NT / Bowel sounds present
Extremities: No edema, normal pulses
# Sepsis present on admission
Likely source is Klebsiella UTI
CXR with small UL PNA
Ceftriaxone to be continued, Added Zithromax
BC neg
Status post gentle IV fluids, now restart Lasix
Leukocytosis better
Ultrasound of the kidneys and bladder neg
# Mild lactic acidosis-repeat lactate normal.
# COPD
Acute hypoxic respiratory insufficiency likely secondary to sepsis
On oxygen
Continue Breztri or equivalent.
DuoNebs added QID
Chest x-ray with CHI Infiltrate
Pt aware to repeat as OP in 4 weeks
# Acute hypoxic respiratory insufficiency
Wean oxygen as tolerated sleep study as outpatient
Pulm eval in am
# CKD stage III
# Mild hyponatremia-Lasix
FR
# Type 2 diabetes-restart metformin
Sliding scale coverage
HBA1C 6.4
Change diet to 2200
# Peripheral neuropathy likely from diabetes
# Hypertension-continue metoprolol and diltiazem
BP slightly high
Likely secondary to volume
Will add Lasix back
# Hyperlipidemia-continue statin
# History of ovarian cancer
History of hysterectomy and bilateral oophorectomy
Follows up with Dr. Guo
CAT scan abdomen and pelvis 03/24/2023-stable
# Chronic lower extremity edema- Lasix
# 7 mm left upper lobe pulmonary nodule, 1 mm left lower lobe pulmonary nodule, 1.5 cm aortopulmonary window lymph node and 2.8 cm right adrenal mass-likely benign per PET scan
# Gout-continue allopurinol
# Obesity BMI 39.7
# Ex-smoker
# DVT prophylaxis-subcutaneous heparin
# Full code
Discussed with nursing
Will call daughter tomorrow
Part of this note was created using voice recognition system. Occasional wrong word or��sound alike� substitutions may have inadvertently occurred due to the inherent limitations of voice recognition software. If noted kindly bring it to my
attention for correction.
Anticipated Discharge: 24 - 48 hours
Subjective/Interval History
-
Date of Service: January 11, 2024
Objective Data
-
Labs:
Laboratory Results
01/11/24
17:10
Sodium Pending
Potassium Pending
Chloride Pending
Carbon Dioxide Pending
BUN Pending
Creatinine Pending
Glucose Pending
Calcium Pending
Vital Signs:
Vital Signs
Temp Pulse Resp BP Pulse Ox
98.0 F 84 16 124/67 97
01/11/24 15:20 01/11/24 15:20 01/11/24 15:20 01/11/24 15:20 01/11/24 15:20
I&O
01/10/24 01/11/24 01/12/24
06:59 06:59 06:59
Intake Total 940 / 940 1440 / 1440
Balance 940 / 940 1440 / 1440
[2024-01-11] MEDS: STERILE WATER FOR INJECTION 10 ML IV (18:00)
[2024-01-11] MEDS: ROCEPHIN 1000 MG IV (18:02)
[2024-01-11 18:04] LABS: Blood Urea Nitrogen 26 mg/dl (7-17); Carbon Dioxide 28 mmol/L (22-30); Chloride 98 mmol/L (98-107); Estimated Creatinine Clearance 58 ml/min; Glucose 110 mg/dl (70-99); Potassium 4.5 mmol/L (3.5-5.1); Sodium 135 mmol/L (135-145); eGFR > 60.00
[2024-01-11] MEDS: LASIX 40 MG IV (18:07)
[2024-01-11] MEDS: DUONEB 3 ML INH (19:45)
[2024-01-11] MEDS: TYLENOL 650 MG PO (20:42)
[2024-01-11] MEDS: PRAVACHOL 40 MG PO (21:13)
[2024-01-11] MEDS: SENOKOT 17.1999999999999993 MG PO (21:13)
[2024-01-11 21:32] LABS: Glucose - Point of Care 231 mg/dl (70-99)
[2024-01-11 23:21] VITALS: BP 132/59
[2024-01-12 06:00] VITALS: BMI 39.6
[2024-01-12] MEDS: SPIRIVA RESPIMAT 2.5 MCG 2 PUFF INH (07:54)
[2024-01-12] MEDS: SYMBICORT 160/4.5 MCG INHALER 2 PUFF INH ×2 (07:54→20:01)
[2024-01-12] MEDS: DUONEB INH (08:03)
[2024-01-12] MEDS: VENTOLIN NEBULES 2.5 MG INH ×4 (08:08→20:01)
[2024-01-12 08:32] VITALS: BP 151/100
[2024-01-12 08:40] LABS: Blood Urea Nitrogen 26 mg/dl (7-17); Calcium 8.9 mg/dl (8.4-10.2); Carbon Dioxide 27 mmol/L (22-30); Chloride 100 mmol/L (98-107); Estimated Creatinine Clearance 58 ml/min; Glucose 153 mg/dl (70-99); Sodium 136 mmol/L (135-145); eGFR > 60.00
[2024-01-12 09:01] LABS: Glucose - Point of Care 253 mg/dl (70-99)
[2024-01-12] MEDS: NOVOLOG FLEXPEN-LOW RESISTANCE 1 UNITS SC ×2 (09:06→13:42)
[2024-01-12] MEDS: ASPIR LOW (ENTERIC COATED) 81 MG PO (09:07)
[2024-01-12] MEDS: CARDIZEM CD 120 MG PO (09:08)
[2024-01-12] MEDS: KCL 10 MEQ PO (09:08)
[2024-01-12] MEDS: DESENEX/MITRAZOL/ZEASORB 1 APPLIC TOPICAL ×2 (09:08→20:02)
[2024-01-12] MEDS: OSCAL CAL 500 500 MG PO ×2 (09:09→20:02)
[2024-01-12] MEDS: TOPROL XL 100 MG PO (09:09)
[2024-01-12] MEDS: OCUVITE SOFTGEL 1 CAP PO (09:09)
[2024-01-12] MEDS: LASIX 40 MG PO (09:09)
--- NOTE | 2024-01-12 09:09 | CON.PUL ---
Consultation
Consultation Request
Date/Time Consultation Requested: 01/12/2024-9 AM
Date/Time Consultation Performed: 01/12/24-9:15 AM
Requesting Provider: Hospitalist
Performing Provider: Dr. Quigley
Reason for Consultation: Shortness of breath, possible home oxygen
Medical History
-
Chief Complaint: Shortness of breath
History of Present Illness:
78-year-old female with underlying COPD followed by Dr. Rose, chronic kidney disease, diabetes, hypertension, hyperlipidemia, ovarian cancer presented with generalized weakness, decreased appetite and shortness of breath and pulmonary consulted for
ongoing oxygen requirements and possible home oxygen 01/12/24. Patient states that she continues to have some shortness of breath with exertion. She states that she is not on home oxygen. She offers no complaints of chest pain, chest tightness,
wheezing, hemoptysis, abdominal pain, nausea, weakness or increased lower extremity swelling.
Past Medical History
Past Medical History: None (COPD. Former smoker. Pulmonary nodule. Obesity. CKD-3. Diabetes. Diabetic neuropathy. Hypertension. Hyperlipidemia. Ovarian cancer. Gout. Appendectomy. Right elbow surgery. T2-5 fusion. Left hip replacement.
All teeth pulled.)
Social History
Tobacco: Former Smoker (22-zaei-cgke quit 12 years ago)
Alcohol: None
Drug: None
Living: With Family
Occupational Exposures: No known asbestos exposure
Environmental Exposures: No known tuberculosis exposure
Family History
Family History: Other (Father-lung cancer. Paternal aunt breast cancer.)
Allergies / Home Medications
Allergies
Allergy/AdvReac Type Severity Reaction Status Date / Time
No Known Allergies Allergy Verified 05/23/23 18:38
Home Medications
�Medication �Instructions �Recorded �Confirmed �Last Taken �Type
furosemide 40 mg tablet 40 mg PO DAILY Fluid 07/09/21 01/07/24 01/07/24 History
retention/Swelling
metformin 1,000 mg tablet 1,000 mg PO BID Diabetes 07/09/21 01/07/24 01/06/24 History
potassium chloride 10 mEq 10 meq PO DAILY Electrolyte 07/09/21 01/07/24 01/07/24 History
capsule,extended release Repletion
pravastatin 40 mg tablet 40 mg PO HS High cholesterol 07/09/21 01/07/24 01/06/24 History
metoprolol succinate 100 mg 100 mg PO DAILY Blood pressure 05/23/22 01/07/24 01/07/24 History
tablet,extended release 24 hr
diltiazem HCl 120 mg 120 mg PO DAILY 30 days #30 caps 05/28/22 01/07/24 01/07/24 Rx
capsule,extended release 24 hr
albuterol sulfate 90 mcg/actuation 2 puff inhalation R Q6 PRN 05/23/23 01/07/24 Unknown History
aerosol inhaler sob/wheezing
allopurinol 100 mg tablet 100 mg PO DAILY Gout 05/23/23 01/07/24 01/07/24 History
aspirin 81 mg tablet,delayed 81 mg PO DAILY Blood Clot 01/07/24 01/07/24 01/07/24 History
release Prevention/Tx
budesonide 160 mcg-glycopyr 9 2 inh inhalation R BID 01/07/24 01/07/24 01/07/24 History
mcg-formot 4.8 mcg/actuation HFA Lung/Breathing Issues
inhaler (Breztri Aerosphere)
calcium carbonate 500 mg PO BID Supplement 01/07/24 01/07/24 Unknown History
cholecalciferol (vitamin D3) 25 25 mcg PO DAILY Supplement 01/07/24 01/07/24 Unknown History
mcg (1,000 unit) tablet (Vitamin
D3)
nmlosmon-rlc-OS 0.4 mg-calcium 162 1 tab PO DAILY Supplement 01/07/24 01/07/24 Unknown History
mg-iron 18 jq-ajszxfn-frjray tablet
sennosides 8.6 mg-docusate sodium 1 tab-cap PO DAILY Constipation 01/07/24 01/07/24 Unknown History
50 mg tablet (Senna-S)
Review of Systems
-
Unable to Obtain full review of systems at this time due to: Other (Per HPI)
Vitals / Labs / Diagnostic Testing
Vital Signs
Temp Pulse Resp BP Pulse Ox
97.6 F 81 18 151/100 97
01/12/24 08:32 01/12/24 08:32 01/12/24 08:32 01/12/24 08:32 01/12/24 08:32
Lab Data
01/10/24 11:42
01/12/24 07:34
Microbiology
01/07/24 15:15 Blood/Venous Blood Culture - Preliminary
No Growth in 4 days- Final report to follow
01/07/24 16:57 Urine Urine Culture - Final
Klebsiella pneumoniae
Diagnostic Testing:
Physical Exam
-
Exam:
Well-nourished and well-developed in no apparent distress
HEENT-atraumatic, normocephalic
Neck-supple, no JVD, no bruit
Heart-regular rate and rhythm-no murmurs, rubs or gallops
Chest with diminished breath sounds, prolonged expiratory time, expiratory wheezes and rare crackles at the bases
Abdomen-soft, nontender, nondistended, no hepatosplenomegaly
Extremities-no cyanosis, clubbing, edema and good peripheral pulses
Integument-intact, no rashes, lesions or ecchymosis
Neurology-alert and oriented, nonfocal motor and sensory exam
Assessment
-
78-year-old female with underlying COPD followed by Dr. Rose, chronic kidney disease, diabetes, hypertension, hyperlipidemia, ovarian cancer presented with generalized weakness, decreased appetite and shortness of breath and pulmonary consulted for
ongoing oxygen requirements and possible home oxygen 01/12/24.
COPD with mild acute exacerbation
Leukocytosis-improved
Left apical iaeahdygb-wgvxfavwy-rillnzsn
Klqmjo-xymgounqim-fptgafaaps 11.8
Mild hyperglycemia
Conditions present prior to admission:
COPD.
Former smoker.
Pulmonary nodule-stable for over [address] March 2023
Obesity-EVARISTO suspected-repeatedly declined sleep study evaluation
CKD-3.
Diabetes.
Diabetic neuropathy.
Hypertension.
Hyperlipidemia.
Ovarian cancer.
Gout.
Appendectomy. Right elbow surgery. T2-5 fusion. Left hip replacement. All teeth pulled.
Plan
Respiratory decompensation likely related to pneumonia and mild COPD exacerbation
Supplemental oxygen-assess discharge supplemental oxygen needs prior to discharge-told patient she might require temporary oxygen at time of discharge
Incentive spirometry
Nebulizers
Inhalers-Symbicort and Spiriva continue
Mucolytic's
Aspiration precautions
Observe off intravenous steroids
Check cultures
Empiric antibiotics
Follow leukocytosis
Follow hemoglobin
Transfuse if needed
Monitor blood sugar
Metformin continues
Insulin supplementation as needed
DVT prophylaxis-on heparin
Nutrition
Early mobilization
Last seen by Dr. Rose/Alayna Loomis [employer] MA[employer]GER-12/29/2023
Diagnostic data:
Chest x-ray 01/07/2024-NAD
Chest x-ray 01/09/2024-left apical opacification suspicious for pneumonia
CT Chest/Abd/Pelvis 03/24/23: 7 mm noncalcified CHI nodule, stable dating back to 11/2020. 1 cm calcified perifissural granuloma at superior segment of LLL. 1.5 cm enlarged lymph node at anterior aspect of aorticopulmonary window, stable dating back
to 11/2020. Stability of 1 mm noncalcified pulmonary nodule at superior segment of the LLL. Minimal dependent atelectasis at the posterior lung bases with mild scarring in the posterior left lung base.�������
CT chest 07/19/2022-7 mm left upper lobe nodule stable. 2 mm nodule in the superior segment left lower lobe stable. Interval development of linear band of opacities associated with some interstitial thickening in the posterior medial left left base
likely atelectasis versus scarring.�������
Doppler BLE US-05/24/2022-no DVT�������
Chest x-ray 05/25/2022-- improved minimal right basilar opacity otherwise no findings.�������
PET scan 01/04/2022-minimal FDG uptake seen within 7.5 mm left upper lobe pulmonary nodule which does not meet criteria for malignancy. However evaluation may be limited due to small size of nodule and elevated serum glucose level.�������
CT chest 12/05/2021-7.5 mm left upper lobe nodule, slowly growing over multiple prior exams dating back to 2013. No new nodules identified. No evidence for metastatic disease in abdomen or pelvis.
PFT 12/29/23: FVC 2.21/91%, FEV1 1.49/82%, ratio 67%, no significant BD response, TLC 4.08/90%, DLCO 8.44/45%, DLCO/VA 2.28/55%. Mild obstruction. Moderately reduced diffusing capacity.�������
PFTs 10/22/22: FVC 2.21/86%, FEV1 1.47/77%, ratio 67%, no significant BD response, post BD FEV1 1.55/81%, TLC 4.63/100%, DLCO 8.61/45%. Mild obstruction. Moderately reduced diffusing capacity.������
Spirometry 06/12/2022 FVC 1.74, 68 Fev1 1.23, 64 ratio 67�������
PFT 2015 FVC 2.75, 98 Fev1 1.83, 86 ratio 67 DLCO 57.
Data Reviewed
-
PFT: Report reviewed by me
EKG: Report reviewed by me
Radiology: Image personally visualized and interpreted and Report reviewed by me
CT Scan: Image personally visualized and interpreted and Report reviewed by me
Ultrasound: Report reviewed by me
Medical Tests (Nuc Med, Echo etc): Report reviewed by me
Labs: Labs reviewed by me
Old Records: Reviewed
Total Time Spent with Patient (in minutes): 50
[2024-01-12] MEDS: VITAMIN D3 (cholecalciferol) 25 MCG PO (09:10)
[2024-01-12] MEDS: VITAMIN B-12 1000 MCG PO (09:10)
[2024-01-12] MEDS: ZITHROMAX 500 MG PO (09:10)
[2024-01-12] MEDS: ZYLOPRIM 100 MG PO (09:10)
[2024-01-12] MEDS: FLUSH (NSS) 1 FLUSH IV (09:11)
[2024-01-12] MEDS: HEPARIN 5000 UNITS SC ×2 (09:11→20:02)
[2024-01-12] MEDS: GLUCOPHAGE 1000 MG PO ×2 (09:15→17:39)
[2024-01-12] MEDS: SENOKOT-S 1 TABLET PO (09:16)
--- NOTE | 2024-01-12 10:21 | PTCARENOTE ---
Patient thought accu check was already done and ate a full breakfast. Accu check after she ate resulted at 253 however she had a lab draw at 0730 which resulted at 153, coverage given based on lab draw. Patient started back on her PO metformin.
[2024-01-12 12:22] LABS: Glucose - Point of Care 181 mg/dl (70-99)
[2024-01-12 12:55] VITALS: BP 153/76; PULSE 80; O2SAT 98
--- NOTE | 2024-01-12 14:52 | W.PN.HOSP.TC ---
Addendum entered and electronically signed by Murray Vu MD 01/12/24 15:22:
Spoke to Daughter Su . Updated.
She sats that once released and pt gets better , she doesn't follow rules.
Original Note:
Today's Communication/Plan
-
Wean Oxygen as tolerated.
May need Home O2
Home O2 eval in am
Discharge tomorrow
Assessment / Plan
Assessment / Plan
78-year-old female with generalized weakness and bodyaches for the 2 days decreased appetite.
CVS: S1-S2 normal
Chest: CTA, No wheezes
Abdomen: Soft, NT / Bowel sounds present
Extremities: No edema, normal pulses
# Sepsis present on admission
Likely source is Klebsiella UTI
CXR with small UL PNA
Ceftriaxone to be continued along with Zithromax
BC neg
Leukocytosis better
Ultrasound of the kidneys and bladder neg
# Mild lactic acidosis-repeat lactate normal.
# COPD
Acute hypoxic respiratory insufficiency likely secondary to sepsis
On oxygen
Continue Breztri or equivalent.
DuoNebs added QID
Chest x-ray with CHI Infiltrate
Pt aware to repeat as OP in 4 weeks
# Acute hypoxic respiratory insufficiency
Wean oxygen as tolerated sleep study as outpatient
Pulm eval appreciated
# CKD ruled out
# Mild hyponatremia-Lasix
FR
# Type 2 diabetes-metformin
Sliding scale coverage
HBA1C 6.4
Change diet to 2200
# Peripheral neuropathy likely from diabetes
# Hypertension-continue metoprolol and diltiazem
Lasix
# Hyperlipidemia-continue statin
# History of ovarian cancer
History of hysterectomy and bilateral oophorectomy
Follows up with Dr. Guo
CAT scan abdomen and pelvis 03/24/2023-stable
# Chronic lower extremity edema- Lasix
# 7 mm left upper lobe pulmonary nodule, 1 mm left lower lobe pulmonary nodule, 1.5 cm aortopulmonary window lymph node and 2.8 cm right adrenal mass-likely benign per PET scan
# Gout-continue allopurinol
# Obesity BMI 39.6
# Ex-smoker
# DVT prophylaxis-subcutaneous heparin
# Full code
Discussed with nursing
Part of this note was created using voice recognition system. Occasional wrong word or��sound alike� substitutions may have inadvertently occurred due to the inherent limitations of voice recognition software. If noted kindly bring it to my
attention for correction.
Anticipated Discharge: Within 24 hours
Subjective/Interval History
-
Date of Service: January 12, 2024
Objective Data
-
Labs:
Laboratory Results
01/12/24
07:34
Sodium 136
Potassium 4.0
Chloride 100
Carbon Dioxide 27
BUN 26 H
Creatinine 0.9
Glucose 153 H
Calcium 8.9
Vital Signs:
Vital Signs
Temp Pulse Resp BP Pulse Ox
97.6 F 83 16 151/100 97
01/12/24 08:32 01/12/24 11:23 01/12/24 11:23 01/12/24 08:32 01/12/24 11:23
I&O
01/11/24 01/12/24 01/13/24
06:59 06:59 06:59
Intake Total 1440 / 1440 960 / 960
Balance 1440 / 1440 960 / 960
[2024-01-12 15:57] VITALS: BP 117/65
[2024-01-12] MEDS: LASIX 20 MG IV (15:57)
--- NOTE | 2024-01-12 16:05 | CM ---
CM attempted bedside meeting with pt- meeting with respiratory
Plan to follow up on VN and possible home O2
Discharge Disposition home, watch for VN and home O2
[2024-01-12] MEDS: ROCEPHIN 1000 MG IV (17:40)
[2024-01-12] MEDS: STERILE WATER FOR INJECTION 10 ML IV (17:40)
[2024-01-12 17:44] LABS: Glucose - Point of Care 124 mg/dl (70-99)
[2024-01-12] MEDS: NOVOLOG FLEXPEN-LOW RESISTANCE SC (17:44)
[2024-01-12] MEDS: PRAVACHOL 40 MG PO (20:02)
[2024-01-12] MEDS: SENOKOT 17.1999999999999993 MG PO (20:02)
[2024-01-12 21:23] LABS: Glucose - Point of Care 228 mg/dl (70-99)
[2024-01-12 23:30] VITALS: BP 110/69
[2024-01-13 06:00] VITALS: BMI 39.3
[2024-01-13 07:04] LABS: Glucose - Point of Care 158 mg/dl (70-99)
[2024-01-13 07:10] VITALS: BP 125/71
[2024-01-13] MEDS: SPIRIVA RESPIMAT 2.5 MCG 2 PUFF INH (07:59)
[2024-01-13] MEDS: SYMBICORT 160/4.5 MCG INHALER 2 PUFF INH (07:59)
[2024-01-13] MEDS: VENTOLIN NEBULES 2.5 MG INH ×3 (08:00→15:22)
[2024-01-13] MEDS: NOVOLOG FLEXPEN-LOW RESISTANCE 1 UNITS SC (08:33)
[2024-01-13] MEDS: KCL 10 MEQ PO (08:34)
[2024-01-13] MEDS: ZITHROMAX 500 MG PO (08:34)
[2024-01-13] MEDS: ASPIR LOW (ENTERIC COATED) 81 MG PO (08:35)
[2024-01-13] MEDS: GLUCOPHAGE 1000 MG PO (08:35)
[2024-01-13] MEDS: OSCAL CAL 500 500 MG PO (08:35)
[2024-01-13] MEDS: SENOKOT-S 1 TABLET PO (08:35)
[2024-01-13] MEDS: TOPROL XL 100 MG PO (08:35)
[2024-01-13] MEDS: LASIX 40 MG PO (08:35)
[2024-01-13] MEDS: VITAMIN D3 (cholecalciferol) 25 MCG PO (08:36)
[2024-01-13] MEDS: VITAMIN B-12 1000 MCG PO (08:36)
[2024-01-13] MEDS: OCUVITE SOFTGEL 1 CAP PO (08:36)
[2024-01-13] MEDS: HEPARIN 5000 UNITS SC (08:36)
[2024-01-13] MEDS: ZYLOPRIM 100 MG PO (08:36)
[2024-01-13] MEDS: CARDIZEM CD 120 MG PO (08:36)
[2024-01-13] MEDS: DESENEX/MITRAZOL/ZEASORB 1 APPLIC TOPICAL (08:44)
[2024-01-13] MEDS: TYLENOL 650 MG PO (08:55)
--- NOTE | 2024-01-13 09:24 | W.PN.PUL.V3 ---
Today's Communication / Plan
-
Wean oxygen
Increase activity
CT chest with pulmonary embolism order call to be complete
Assessment
-
78-year-old female with underlying COPD followed by Dr. Rose, chronic kidney disease, diabetes, hypertension, hyperlipidemia, ovarian cancer presented with generalized weakness, decreased appetite and shortness of breath and pulmonary consulted for
ongoing oxygen requirements and possible home oxygen 01/12/24.
COPD with mild acute exacerbation
Leukocytosis-improved
Left apical jxdrpatsn-ajfimdsms-mhpjyvtj
Cwgpaz-ipzqyqewui-ezkjedrxjc 11.8
Mild hyperglycemia
Conditions present prior to admission:
COPD.
Former smoker.
Pulmonary nodule-stable for over [address] March 2023
Obesity-EVARISTO suspected-repeatedly declined sleep study evaluation
CKD-3.
Diabetes.
Diabetic neuropathy.
Hypertension.
Hyperlipidemia.
Ovarian cancer.
Gout.
Appendectomy. Right elbow surgery. T2-5 fusion. Left hip replacement. All teeth pulled.
Plan
Respiratory decompensation likely related to pneumonia and mild COPD exacerbation
Supplemental oxygen-assess discharge supplemental oxygen needs prior to discharge-told patient she might require temporary oxygen at time of discharge
Incentive spirometry encouraged
Nebulizers
Inhalers-Symbicort and Spiriva continue
Mucolytic's
Aspiration precautions
Observe off intravenous steroids
Chest with diminished breath sounds but no active wheezing and no clear explanation for increased FiO2 requirements
Check CT with PE protocol to be complete
Cultures reviewed
Blood cultures negative
Urine culture with Klebsiella
Empiric antibiotics
Follow leukocytosis
Follow hemoglobin
Transfuse if needed
Monitor blood sugar
Metformin continues
Insulin supplementation as needed
DVT prophylaxis-on heparin
Nutrition
Early mobilization
Reviewed with nursing and primary team
Last seen by Dr. Roes/Alayna Loomis [employer]IST-12/29/2023
Diagnostic data:
Chest x-ray 01/07/2024-NAD
Chest x-ray 01/09/2024-left apical opacification suspicious for pneumonia
CT Chest/Abd/Pelvis 03/24/23: 7 mm noncalcified CHI nodule, stable dating back to 11/2020. 1 cm calcified perifissural granuloma at superior segment of LLL. 1.5 cm enlarged lymph node at anterior aspect of aorticopulmonary window, stable dating back
to 11/2020. Stability of 1 mm noncalcified pulmonary nodule at superior segment of the LLL. Minimal dependent atelectasis at the posterior lung bases with mild scarring in the posterior left lung base.�������
CT chest 07/19/2022-7 mm left upper lobe nodule stable. 2 mm nodule in the superior segment left lower lobe stable. Interval development of linear band of opacities associated with some interstitial thickening in the posterior medial left left base
likely atelectasis versus scarring.�������
Doppler BLE US-05/24/2022-no DVT�������
Chest x-ray 05/25/2022-- improved minimal right basilar opacity otherwise no findings.�������
PET scan 01/04/2022-minimal FDG uptake seen within 7.5 mm left upper lobe pulmonary nodule which does not meet criteria for malignancy. However evaluation may be limited due to small size of nodule and elevated serum glucose level.�������
CT chest 12/05/2021-7.5 mm left upper lobe nodule, slowly growing over multiple prior exams dating back to 2014. No new nodules identified. No evidence for metastatic disease in abdomen or pelvis.
PFT 12/29/23: FVC 2.21/91%, FEV1 1.49/82%, ratio 67%, no significant BD response, TLC 4.08/90%, DLCO 8.44/45%, DLCO/VA 2.28/55%. Mild obstruction. Moderately reduced diffusing capacity.�������
PFTs 10/22/22: FVC 2.21/86%, FEV1 1.47/77%, ratio 67%, no significant BD response, post BD FEV1 1.55/81%, TLC 4.63/100%, DLCO 8.61/45%. Mild obstruction. Moderately reduced diffusing capacity.������
Spirometry 06/12/2022 FVC 1.74, 68 Fev1 1.23, 64 ratio 67�������
PFT 2016 FVC 2.75, 98 Fev1 1.83, 86 ratio 67 DLCO 57.
Subjective Data
-
Date of Service:
Date of Service: January 13, 2024
Chief Complaint: Pulmonary Follow Up and Dyspnea Follow Up
Subjective:
Continues to require oxygen, no chest congestion, wheezing, productive cough or abdominal pain, his chronic lower extremity swelling without change
Review of Systems
General: Other (Per HPI)
Objective Data
Data Reviewed
Vital Signs / I&O:
Vital Signs
Temp Pulse Resp BP Pulse Ox
97.7 F 85 16 125/71 96
01/13/24 07:10 01/13/24 08:36 01/13/24 08:05 01/13/24 08:36 01/13/24 08:05
Intake and Output
01/12/24 01/13/24 01/14/24
06:59 06:59 06:59
Intake Total 960 / 960 1080 / 1080
Balance 960 / 960 1080 / 1080
SaO2: 96
Nasal Cannula flow liters per minute: 2
Physical Exam
General: Respiratory Distress (n) and Comfortable
HEENT: Normocephalic, Anicteric and Moist Mucous Membranes
Cardiovascular: Regular Rhythm
Respiratory: Wheeze (n), Crackles (n), Rhonchi (n), Non-Labored Respirations, Accessory Resp Muscle Use (n) and Stridor
GI: Soft, Non Distended and Non Tender
Neurology: Awake, Alert and No Motor Deficits
Skin: Warm, Good Color, Cyanosis (n), Jaundice (n) and Rash (n)
Labs/Micro/Reports
Lab Data
01/10/24 11:42
01/12/24 07:34
Microbiology
01/07/24 15:15 Blood/Venous Blood Culture - Final
No Growth - Final Report
[2024-01-13 11:45] LABS: Glucose - Point of Care 233 mg/dl (70-99)
[2024-01-13] MEDS: NOVOLOG FLEXPEN-LOW RESISTANCE 2 UNITS SC (12:14)
--- NOTE | 2024-01-13 12:37 | VNURNOTE ---
Home Health Liaison met with patient at 1130 to discuss [facility] nurse/therapy, visits, schedule and homebound status. Patient is agreeable and understands that visits at home will be 2-3 x per week to assess and teach medical management.
[facility] brochure provided with contact information. Patient is aware that [facility] will contact her for start of care in 1-2 days after discharge from .
[facility] referral completed in [facility].
New home O2 ordered w/[facility] by CM.
--- NOTE | 2024-01-13 14:05 | W.PN.HOSP.TC ---
Addendum entered and electronically signed by Murray Vu MD 01/13/24 14:55:
Home O2 evaluation from yesterday noted. Patient has a co-pay for the oxygen. Therefore requested another oxygen evaluation. Saturations do not qualify for home oxygen today.
Patient stated that her entire life she gets short of breath with exertion and that is normal for her if she stops or sits down and ' catch my breath I am fine.'
I discussed this with patient's daughter Su. Daughter stated that patient has had fevers of oxygen being at home saying that' it can blow peoples houses.'
Pt awar about benefits /risks of Oxygen and not having it.
She is aware that if patient needs to follow-up with pulmonary in 1 to 2 weeks and at that time they will retest her for her needs.
We discussed about CT lung findings and the need for follow-up on the enlarged lymph node.
All questions answered.
Discussed with Dr. Quigley. Also okay for patient to be discharged.
Discharge coordination time 45 minutes
Original Note:
Today's Communication/Plan
-
Await CT chest
Discharge home today if OK with Pulmonary also
Assessment / Plan
Assessment / Plan
78-year-old female with generalized weakness and bodyaches for the 2 days decreased appetite.
CVS: S1-S2 normal
Chest: CTA, No wheezes
Abdomen: Soft, NT / Bowel sounds present
Extremities: No edema, normal pulses
# Sepsis present on admission
Likely source is Klebsiella UTI
CXR with small UL PNA
Ceftriaxone and Zithromax
BC neg
Leukocytosis better
Ultrasound of the kidneys and bladder neg
# Mild lactic acidosis-repeat lactate normal.
# COPD
Acute hypoxic respiratory insufficiency likely secondary to sepsis
Off oxygen
Did not qualify for Home O2 today
Continue Breztri or equivalent.
DuoNebs added QID
Chest x-ray with [facility]I Infiltrate
Pt aware to repeat as OP in [address] Chest PE study done -Pending
# Acute hypoxic respiratory insufficiency
Off O2
# CKD ruled out
# Mild hyponatremia-Lasix
FR
# Type 2 diabetes-metformin
Sliding scale coverage
HBA1C 6.4
Change diet to 2200
# Peripheral neuropathy likely from diabetes
# Hypertension-continue metoprolol and diltiazem
Lasix
# Hyperlipidemia-continue statin
# History of ovarian cancer
History of hysterectomy and bilateral oophorectomy
Follows up with Dr. Guo
CAT scan abdomen and pelvis 03/24/2023-stable
# Chronic lower extremity edema- Lasix
# 7 mm left upper lobe pulmonary nodule, 1 mm left lower lobe pulmonary nodule, 1.5 cm aortopulmonary window lymph node and 2.8 cm right adrenal mass-likely benign per PET scan
# Gout-continue allopurinol
# Obesity BMI 39.6
# Ex-smoker
# DVT prophylaxis-subcutaneous heparin
# Full code
Discussed with nursing
D/W Cse management
D/W Daughter yesterday
D/W Pulm
Part of this note was created using voice recognition system. Occasional wrong word or��sound alike� substitutions may have inadvertently occurred due to the inherent limitations of voice recognition software. If noted kindly bring it to my
attention for correction.
Anticipated Discharge: Today
Subjective/Interval History
-
Date of Service: January 13, 2024
Objective Data
-
Vital Signs:
Vital Signs
Temp Pulse Resp BP Pulse Ox
97.7 F 76 16 125/71 98
01/13/24 07:10 01/13/24 11:29 01/13/24 11:29 01/13/24 08:36 01/13/24 09:34
I&O
01/12/24 01/13/24 01/14/24
06:59 06:59 06:59
Intake Total 960 / 960 1080 / 1080
Balance 960 / 960 1080 / 1080
--- NOTE | 2024-01-13 14:45 | CM ---
CM reviewed pt with Dr Vu- ADC today pending pulm clearance
Based on home eval from 01/11, pt qualifies for 2L of O2
Bedside meeting with pt to review planning
VN recommendations and pt in agreement with referral to VN
Pt also in agreement with referral to [facility]
Script and clinicals faxed to [facility]- pt copay of $15-20 monthly
Pt does not want to pay copay and requested for oxygen need to be readdressed
Home eval today completed and per eval today, pt does not qualify for home O2
Pt aware
IMM verbally completed- copy provided
Discharge Disposition- home with VN- family transport
--- NOTE | 2024-01-13 14:56 | W.DS.TRANS ---
Addendum entered and electronically signed by Murray Vu MD 01/13/24 15:13:
Dictation- [id number]
Original Note:
DC Summary - [employer]
-
Discharge Instructions:
Discharge Diagnosis/Procedures Pneumonia, UTI, COPD, dehydration, diabetes,
peripheral neuropathy, hypertension, high
cholesterol, history of ovarian cancer,
pulmonary nodule, gout
Diet Restrict fluids to 64 oz,Diabetic, Carb
Controlled
Activity As tolerated
Driving Restrictions No driving
Others Tests Chest X ray 4-6 weeks. Urinalysis in 2 weeks.
Other Services VN
Instructions:
Stand-Alone Forms:
Changes to Home Medications: Yes
Discharge Medications:
DC Medications w/original date entered in [employer]
furosemide 40 mg tablet 40 mg PO DAILY Fluid retention/Swelling 07/09/21
metformin 1,000 mg tablet 1,000 mg PO BID Diabetes 07/09/21
potassium chloride 10 mEq capsule,extended release 10 meq PO DAILY Electrolyte Repletion 07/09/21
pravastatin 40 mg tablet 40 mg PO HS High cholesterol 07/09/21
metoprolol succinate 100 mg tablet,extended release 24 hr 100 mg PO DAILY Blood pressure 05/23/22
albuterol sulfate 90 mcg/actuation aerosol inhaler 2 puff inhalation R Q6 PRN sob/wheezing 05/23/23
allopurinol 100 mg tablet 100 mg PO DAILY Gout 05/23/23
aspirin 81 mg tablet,delayed release 81 mg PO DAILY Blood Clot Prevention/Tx 01/07/24
budesonide 160 mcg-glycopyr 9 mcg-formot 4.8 mcg/actuation HFA inhaler (Breztri Aerosphere) 2 inh inhalation R BID Lung/Breathing Issues 01/07/24
calcium carbonate 500 mg PO BID Supplement 01/07/24
cholecalciferol (vitamin D3) 25 mcg (1,000 unit) tablet (Vitamin D3) 25 mcg PO DAILY Supplement 01/07/24
ujwfmiuy-psg-QB 0.4 mg-calcium 162 mg-iron 18 lc-daydwmu-mfxkfs tablet 1 tab PO DAILY Supplement 01/07/24
sennosides 8.6 mg-docusate sodium 50 mg tablet (Senna-S) 1 tab-cap PO DAILY Constipation 01/07/24
azithromycin 250 mg tablet 500 mg (2 x 250 mg) PO DAILY Lung/breathing issues #2 tabs 01/12/24
cefuroxime axetil 500 mg tablet 500 mg PO BID Infection #6 tabs 01/12/24
cyanocobalamin (vitamin B-12) 1,000 mcg tablet 1,000 mcg PO DAILY low normal B12 #0 tabs 01/12/24
diltiazem HCl 120 mg capsule,extended release 24 hr 120 mg PO DAILY Arrhythmia 30 days #30 caps 01/12/24
Home Medication Changes
new
azithromycin 250 mg tablet 500 mg (2 x 250 mg) PO DAILY Lung/breathing issues #2 tabs 01/12/24
cefuroxime axetil 500 mg tablet 500 mg PO BID Infection #6 tabs 01/12/24
cyanocobalamin (vitamin B-12) 1,000 mcg tablet 1,000 mcg PO DAILY low normal B12 #0 tabs 01/12/24
Pending Results: No
[2024-01-13 15:00] VITALS: BP 164/70
--- NOTE | 2024-01-13 15:19 | PTCARENOTE ---
Reviewed discharge instructions with patient. Patient verbalizes understanding of all teaching. Patient understands she needs a UA in two weeks and a sleep study as an outpatient. IV removed. Patient will be transported home by daughter.
== END 2024-01-13 16:06 | disposition home health service (06) | DRG 871 ==
LOC: 4 EAST ACU 18:55
PROVIDERS: Student in an Organized Health Care Education/Training Program; ADMITTING PHYSICIAN Hospitalist; ATTENDING PHYSICIAN Hospitalist; CONSULT PHYSICIAN Internal Medicine Critical Care Medicine; EMERGENCY PHYSICIAN Emergency Medicine
DX: A41.9 Sepsis, unspecified organism (principal); J18.9 Pneumonia, unspecified organism; N39.0 Urinary tract infection, site not specified; J44.1 Chronic obstructive pulmonary disease with (acute) exacerbation; J44.0 Chronic obstructive pulmonary disease with (acute) lower respiratory infection; E87.1 Hypo-osmolality and hyponatremia; E87.20 Acidosis, unspecified; Z11.52 Encounter for screening for COVID-19; Z87.891 Personal history of nicotine dependence; R09.02 Hypoxemia; R06.89 Other abnormalities of breathing; E11.65 Type 2 diabetes mellitus with hyperglycemia; I12.9 Hypertensive chronic kidney disease with stage 1 through stage 4 chronic kidney disease, or unspecified chronic kidney disease; N18.30 Chronic kidney disease, stage 3 unspecified; E11.22 Type 2 diabetes mellitus with diabetic chronic kidney disease; E78.00 Pure hypercholesterolemia, unspecified; M10.9 Gout, unspecified; E66.9 Obesity, unspecified; Z68.39 Body mass index [BMI] 39.0-39.9, adult; E11.42 Type 2 diabetes mellitus with diabetic polyneuropathy; B96.1 Klebsiella pneumoniae [K. pneumoniae] as the cause of diseases classified elsewhere
CPT/HCPCS: 51701; 71046; 71275; 76770; 80048; 80053; 81003; 81015; 82607; 82962; 83036; 83605; 83735; 85025; 85027; 87040; 87077; 87086; 87186; 87502; 87811; 93005; 94640; 96374; 97116; 97162; 99285; Q9967

== ENCOUNTER → 2024-02-12 10:33 | Outpatient (REF) | payer OTHER, SELFPAY ==
[2024-02-12 11:30] LABS: Urine Albumin Negative (Neg - Trace); Urine Bilirubin Negative (Negative); Urine Character Slightly Cloudy (Clear); Urine Color Yellow; Urine Glucose Negative (Negative); Urine Ketone Negative (Negative); Urine Leukocyte 1+ (Negative); Urine Nitrite Negative (Negative); Urine Occult Blood Negative (Negative); Urine Specific Gravity 1.015 (<1.030); Urine Urobilinogen Negative (Neg - 1+); Urine pH 6.5 (5.0-9.0)
[2024-02-12 11:33] LABS: % Basophils 0.5 % (0-2); % Immature Granulocytes 0.3 % (0-0.5); % Lymphocytes 33.3 % (20.5-51.1); % Monocytes 9.5 % (1.7-9.3); % Neutrophils 54.4 % (42.2-75.2); Absolute Eosinophils 0.1 10^3/uL (0-0.7); Absolute Lymphocytes 2.2 10^3/uL (1.2-3.4); Absolute Monocytes 0.6 10^3/uL (0.1-0.6); Absolute Neutrophils 3.6 10^3/uL (1.4-6.5); Hematocrit 37.6 % (37.0-47.0); Hemoglobin 12.1 g/dL (12.0-16.0); Mean Corp Hgb Conc. 32.2 g/dL (33.0-37.0); Mean Corpuscular Hgb 29.3 pg (27.0-31.0); Nucleated Red Blood Cells % 0 %; Platelet Count 176 10^3/uL (130-400); Red Blood Cell Count 4.13 10^6/uL (4.20-5.40); Red Cell Dist. Width 15.7 % (11.5-14.5); White Blood Cell Count 6.6 10^3/uL (4.8-10.8)
[2024-02-12 11:50] LABS: Urine Squamous Cell >30 /LPF (Few)
[2024-02-12 11:52] LABS: Urine Bacteria Few (Negative); Urine Red Blood Cell 0-2 /HPF (0-2)
[2024-02-12 11:54] LABS: ALT (SGPT) 15 U/L (0-35); AST (SGOT) 23 U/L (14-36); Albumin 4.3 g/dl (3.5-5.0); Alkaline Phosphatase 115 U/L (38-126); Blood Urea Nitrogen 32 mg/dl (7-17); Calcium 9.5 mg/dl (8.4-10.2); Carbon Dioxide 27 mmol/L (22-30); Chloride 100 mmol/L (98-107); Glucose 137 mg/dl (70-99); Iron 88 ug/dl (37-170); Potassium 3.9 mmol/L (3.5-5.1); Sodium 139 mmol/L (135-145); Total Bilirubin 0.5 mg/dl (0.2-1.3); eGFR 46.91
[2024-02-12 12:04] LABS: Percent Saturation 20 % (20-50); Total Iron Binding Capacity 421 ug/dl (265-497)
[2024-02-12 12:06] LABS: Glycohemoglobin (HgbA1c) 6.5 % (4.0-5.6)
== END ==
LOC: RAD 10:33
PROVIDERS: ATTENDING PHYSICIAN Physician Assistant
DX: Z09 Encounter for follow-up examination after completed treatment for conditions other than malignant neoplasm (principal); E11.9 Type 2 diabetes mellitus without complications; N18.30 Chronic kidney disease, stage 3 unspecified; N39.0 Urinary tract infection, site not specified; J44.9 Chronic obstructive pulmonary disease, unspecified; J18.9 Pneumonia, unspecified organism
CPT/HCPCS: 36415; 71046; 80053; 81003; 81015; 82728; 83036; 83540; 83550; 85025; 87077; 87086; 87186

== ENCOUNTER → 2024-03-18 11:10 | Outpatient (REF) | payer OTHER, SELFPAY ==
[2024-03-18 12:47] LABS: NT-proBNP 163 pg/ml
[2024-03-18 13:41] LABS: Blood Urea Nitrogen 23 mg/dl (7-17); Calcium 10.2 mg/dl (8.4-10.2); Carbon Dioxide 28 mmol/L (22-30); Chloride 100 mmol/L (98-107); Glucose 143 mg/dl (70-99); Potassium 4.6 mmol/L (3.5-5.1); Sodium 139 mmol/L (135-145); eGFR 46.62
== END ==
LOC: REG 11:10
PROVIDERS: ATTENDING PHYSICIAN Internal Medicine Cardiovascular Disease; FAMILY PHYSICIAN Physician Assistant
DX: I50.32 Chronic diastolic (congestive) heart failure (principal)
CPT/HCPCS: 36415; 80048; 83880

== ENCOUNTER → 2024-04-01 08:09 | Outpatient (REF) | payer OTHER, SELFPAY | LOC: RCS 08:09 | PROVIDERS: ATTENDING PHYSICIAN Internal Medicine Cardiovascular Disease; FAMILY PHYSICIAN Physician Assistant | DX: I50.32 Chronic diastolic (congestive) heart failure (principal) | CPT/HCPCS: 93306 ==

== ENCOUNTER → 2024-06-29 15:10 | Outpatient (REF) | payer OTHER, SELFPAY | LOC: WDC 15:10 | PROVIDERS: ATTENDING PHYSICIAN Obstetrics & Gynecology Gynecologic Oncology; FAMILY PHYSICIAN Physician Assistant | DX: Z12.31 Encounter for screening mammogram for malignant neoplasm of breast (principal) | CPT/HCPCS: 77063; 77067 ==

== ENCOUNTER → 2024-08-19 09:16 | Outpatient (REF) | payer OTHER, SELFPAY ==
[2024-08-19 11:35] LABS: % Basophils 0.6 % (0-2); % Eosinophils 1.6 % (0-6); % Immature Granulocytes 0.4 % (0-0.5); % Lymphocytes 28.1 % (20.5-51.1); % Monocytes 7.1 % (1.7-9.3); % Neutrophils 62.2 % (42.2-75.2); Absolute Eosinophils 0.1 10^3/uL (0-0.7); Absolute Monocytes 0.5 10^3/uL (0.1-0.6); Absolute Neutrophils 4.4 10^3/uL (1.4-6.5); Hematocrit 37.1 % (37.0-47.0); Hemoglobin 12.5 g/dL (12.0-16.0); Mean Corp Hgb Conc. 33.7 g/dL (33.0-37.0); Mean Corpuscular Volume 86.1 fL (81.0-99.0); Mean Platelet Volume 9.7 fL (7.4-10.4); Nucleated Red Blood Cells % 0 %; Platelet Count 237 10^3/uL (130-400); Red Blood Cell Count 4.31 10^6/uL (4.20-5.40)
[2024-08-19 12:05] LABS: ALT (SGPT) 20 U/L (0-35); AST (SGOT) 23 U/L (14-36); Albumin 4.5 g/dl (3.5-5.0); Alkaline Phosphatase 108 U/L (38-126); Blood Urea Nitrogen 23 mg/dl (7-17); Calcium 9.4 mg/dl (8.4-10.2); Carbon Dioxide 25 mmol/L (22-30); Chloride 97 mmol/L (98-107); Glucose 113 mg/dl (70-99); Potassium 3.5 mmol/L (3.5-5.1); Sodium 140 mmol/L (135-145); Total Bilirubin 0.4 mg/dl (0.2-1.3); Total Protein 7.3 g/dl (6.3-8.2); eGFR 42.35
[2024-08-19 12:26] LABS: CA 125 5.8 U/mL (0-35)
== END ==
LOC: REG 09:16
PROVIDERS: ATTENDING PHYSICIAN Obstetrics & Gynecology Gynecologic Oncology; FAMILY PHYSICIAN Physician Assistant
DX: C56.3 Malignant neoplasm of bilateral ovaries (principal)
CPT/HCPCS: 36415; 80053; 85025; 86304

== ENCOUNTER → 2024-08-26 09:27 | Outpatient (REF) | payer OTHER, SELFPAY | LOC: RAD 09:27 | PROVIDERS: ATTENDING PHYSICIAN Obstetrics & Gynecology Gynecologic Oncology; FAMILY PHYSICIAN Physician Assistant | DX: C56.3 Malignant neoplasm of bilateral ovaries (principal) | CPT/HCPCS: 71260; 74177; Q9967 ==

== ENCOUNTER → 2025-01-18 14:36 | Outpatient (REF) | payer OTHER, SELFPAY ==
[2025-01-19 10:30] LABS: Glycohemoglobin (HgbA1c) 5.5 % (4.0-5.6)
== END ==
LOC: REG 14:36
PROVIDERS: ATTENDING PHYSICIAN Orthopaedic Surgery Adult Reconstructive Orthopaedic Surgery; FAMILY PHYSICIAN Physician Assistant
DX: R73.09 Other abnormal glucose (principal)
CPT/HCPCS: 36415; 83036

== ENCOUNTER → 2025-03-10 10:01 | Outpatient (REF) | payer OTHER, SELFPAY ==
[2025-03-10 10:55] LABS: % Basophils 0.5 % (0-2); % Eosinophils 2.4 % (0-6); % Immature Granulocytes 0.4 % (0-0.5); % Lymphocytes 25.7 % (20.5-51.1); % Monocytes 8.8 % (1.7-9.3); % Neutrophils 62.2 % (42.2-75.2); Absolute Basophils 0.1 10^3/uL (0-0.2); Absolute Eosinophils 0.2 10^3/uL (0-0.7); Absolute Lymphocytes 2.5 10^3/uL (1.2-3.4); Absolute Monocytes 0.9 10^3/uL (0.1-0.6); Hematocrit 33.6 % (37.0-47.0); Hemoglobin 10.8 g/dL (12.0-16.0); Mean Corp Hgb Conc. 32.1 g/dL (33.0-37.0); Mean Corpuscular Hgb 28.9 pg (27.0-31.0); Mean Corpuscular Volume 89.8 fL (81.0-99.0); Mean Platelet Volume 9.5 fL (7.4-10.4); Nucleated Red Blood Cells % 0 %; Platelet Count 303 10^3/uL (130-400); Red Blood Cell Count 3.74 10^6/uL (4.20-5.40); Red Cell Dist. Width 15.9 % (11.5-14.5); White Blood Cell Count 9.7 10^3/uL (4.8-10.8)
[2025-03-10 12:01] LABS: Blood Urea Nitrogen 20 mg/dl (7-17); Calcium 9.7 mg/dl (8.4-10.2); Carbon Dioxide 26 mmol/L (22-30); Chloride 104 mmol/L (98-107); Glucose 113 mg/dl (70-99); Potassium 3.9 mmol/L (3.5-5.1); Sodium 141 mmol/L (135-145); eGFR 46.33
== END ==
LOC: REG 10:01
PROVIDERS: ATTENDING PHYSICIAN Orthopaedic Surgery Adult Reconstructive Orthopaedic Surgery; FAMILY PHYSICIAN Physician Assistant
DX: Z96.641 Presence of right artificial hip joint (principal)
CPT/HCPCS: 36415; 80048; 85025

== ENCOUNTER 2025-04-05 15:01 | Outpatient (RCR) | payer OTHER, SELFPAY | END 2025-04-05 23:59 | disposition home or self-care (01) | LOC: RPT 15:01 | PROVIDERS: ATTENDING PHYSICIAN Physician Assistant | DX: Z47.1 Aftercare following joint replacement surgery (principal); Z73.6 Limitation of activities due to disability; M62.81 Muscle weakness (generalized); Z96.641 Presence of right artificial hip joint | CPT/HCPCS: 97110; 97162; 97530 ==

== ENCOUNTER 2025-05-10 15:20 | Outpatient (RCR) | payer OTHER, SELFPAY | END 2025-05-10 23:59 | disposition home or self-care (01) | LOC: RPT 15:20 | PROVIDERS: ATTENDING PHYSICIAN Physician Assistant | DX: Z47.1 Aftercare following joint replacement surgery (principal); Z96.641 Presence of right artificial hip joint; Z73.6 Limitation of activities due to disability; M62.81 Muscle weakness (generalized); R26.89 Other abnormalities of gait and mobility; M25.551 Pain in right hip | CPT/HCPCS: 97110; 97112; 97530 ==

== ENCOUNTER 2025-05-13 09:26 | Outpatient (RCR) | payer OTHER, SELFPAY | END 2025-06-01 07:26 | disposition home or self-care (01) | LOC: RPT 09:26 | PROVIDERS: ATTENDING PHYSICIAN Physician Assistant | DX: Z47.1 Aftercare following joint replacement surgery (principal); Z73.6 Limitation of activities due to disability; M62.81 Muscle weakness (generalized); Z96.641 Presence of right artificial hip joint | CPT/HCPCS: 97110; 97530 ==

== ENCOUNTER 2025-07-19 10:53 | Emergency (ER) | payer OTHER, SELFPAY ==
[2025-07-19 11:02] VITALS: BP 143/60
--- NOTE | 2025-07-19 12:03 | ED.MUSCINJ ---
HPI-Injury
General
Chief Complaint: Musculo-Skeletal Complaint
Source: patient
Exam Limitations: none
Time Seen by Provider: 07/19/25 11:43
History of Present Illness-Injury
Initial Injury comments:
80-year-old female presents complaining of right lateral hip pain that radiates to the knee. This has been getting worse over the past 2 to 3 days. She has a history of hip replacement performed in February of this year. She has been doing well.
There is no injury. No fevers. She has been using oxycodone at home to help her sleep. No significant back pain or bowel or bladder dysfunction. No other complaints at this time
Past History
Past History
ED Past Medical History: Cancer (ovarian), COPD, HTN and Hypercholesterolemia
ED Past Surgical History: Orthopedic
Social History
Tobacco: Former smoker
Alcohol: None
Drug: None
Personal:
Living: with family
Employment: Retired
Family History
Family History: Other
Phy Exam
Physical Exam
Physical Exam:
General: Well-appearing female no acute respiratory distress
HEENT: Normal cephalic atraumatic
Musculoskeletal exam: The right hip is tender over the lateral aspect of the hip in the area of the greater trochanteric region she has increased pain with resisted hip abduction. Passive internal/external rotation of the hip does not reproduce any
pain. There is no deformity. There is a well-appearing surgical incision over the lateral aspect of the right hip
Injury Course
Orders/Labs/Results
Orders:
Orders
07/19/25 11:06
Hip, Right 2-3 Views [CR Hip - RT w/wo Pel 2-3 Vw*] Urgent
Comment: R THR 02/2025
Reason For Exam: pain without injury
Include a pelvis x-ray?: Yes
MDM/Problems Addressed
Differential Diagnosis Includes:
Right lateral hip and thigh pain. Patient concerned about the integrity of smoke. X-rays were obtained of her right hip and pelvis which were negative for acute findings. Exam more consistent with either bursitis or radiculopathy. Will recommend
anti-inflammatory. Follow-up. Stable for discharge
*Pulse Oximetry
SaO2: 97
Oxygen Mode of Delivery: Room air
Patient hypoxic: no
*Critical Care Note
Total Time (30-74mins, 75-104mins- exclusive of procedures): Not Applicable
ED Attending Note
-
Portions of this chart may have been created with voice recognition software.� Occasional wrong word or��sound alike� substitutions may have occurred due to the inherent limitations of voice recognition software.
Discharge Plan
Departure
Patient Disposition: Home (Routine Discharge)
Date of Disposition: 07/19/25
Time of Disposition: 12:06
Patient with high blood pressure during this ER visit?: No
Discharge Problem:
Acute hip pain
Instructions: Muscle and Bone Pain (DC)
Prescriptions:
New
prednisone 10 mg Tablet
See Rx Instructions .ROUTE .COMPLEX Qty: 30 0RF
Rx Instructions:
Take By Mouth:
40 mg daily x3 days, 30 mg daily x3 days,
20 mg daily x3 days, 10 mg daily x3 days.
No Action
furosemide 40 MG tablet
40 mg PO DAILY
potassium chloride 10 MEQ capsule, extended release
10 meq PO DAILY
pravastatin 40 MG tablet
40 mg PO HS
metformin 1,000 MG tablet
1,000 mg PO BID
metoprolol succinate 100 mg tablet extended release 24 hr
100 mg PO DAILY
allopurinol 100 mg Tablet
100 mg PO DAILY
albuterol sulfate 90 mcg/actuation Hfa Aerosol Inhaler
2 puff INHALATION R Q6 PRN (Reason: sob/wheezing)
sennosides-docusate sodium [Senna-S] 8.6-50 mg Tablet
1 tab-cap PO DAILY
aspirin 81 mg Tablet,Delayed Release (Dr/Ec)
81 mg PO DAILY
calcium carbonate 500 mg calcium (1,250 mg) Tablet
500 mg PO BID
vd-onj-ST-Ie-Rc-uxgsxxj-lutein 0.4-162-18 mg Tablet
1 tab PO DAILY
cholecalciferol (vitamin D3) [Vitamin D3] 25 mcg (1,000 unit) Tablet
25 mcg PO DAILY
Breztri Aerosphere 160-9-4.8 mcg/actuation HFA aerosol inhaler
2 inh INHALATION R BID
azithromycin 250 mg Tablet
500 mg PO DAILY Qty: 2 0RF
cyanocobalamin (vitamin B-12) 1,000 mcg Tablet
1,000 mcg PO DAILY Qty: 0 0RF
cefuroxime axetil 500 mg tablet
500 mg PO BID Qty: 6 0RF
diltiazem HCl 120 mg Capsule,Extended Release 24hr
120 mg PO DAILY 30 Days Qty: 30 0RF
Referrals:
Teri Matos PA-C [Family Provider, Internal Medicine]
Activity Restrictions/Additional Instructions:
Use use prescribed medicine as directed. Follow-up with your orthopedic doctor. Consider using walker if needed
Interventions
Interventions:
*Risk Screen - Suicide Last Done: 07/19/25 11:02
Discharge Date and Time
Print Language: MALTESE
[2025-07-19 12:20] VITALS: BP 135/84
== END 2025-07-19 12:20 | disposition home or self-care (01) ==
LOC: EMR 10:53
PROVIDERS: EMERGENCY PHYSICIAN Emergency Medicine; FAMILY PHYSICIAN Physician Assistant
DX: M25.551 Pain in right hip (principal); E78.00 Pure hypercholesterolemia, unspecified; I10 Essential (primary) hypertension; J44.9 Chronic obstructive pulmonary disease, unspecified; Z85.43 Personal history of malignant neoplasm of ovary; Z87.891 Personal history of nicotine dependence; Z96.643 Presence of artificial hip joint, bilateral
CPT/HCPCS: 99283; 73502

== ENCOUNTER → 2025-09-16 13:12 | Outpatient (REF) | payer OTHER, MEDICARE, SELFPAY ==
[2025-09-16 14:21] LABS: Hematocrit 39.1 % (37.0-47.0); Hemoglobin 12.1 g/dL (12.0-16.0); Mean Corp Hgb Conc. 30.9 g/dL (33.0-37.0); Mean Corpuscular Volume 90.3 fL (81.0-99.0); Nucleated Red Blood Cells % 0 %; Platelet Count 200 10^3/uL (130-400); Red Cell Dist. Width 15.8 % (11.5-14.5)
[2025-09-16 15:02] LABS: ALT (SGPT) 12 U/L (0-35); AST (SGOT) 21 U/L (14-36); Albumin 4.4 g/dl (3.5-5.0); Alkaline Phosphatase 97 U/L (38-126); Blood Urea Nitrogen 19 mg/dl (7-17); Calcium 9.8 mg/dl (8.4-10.2); Carbon Dioxide 30 mmol/L (22-30); Chloride 98 mmol/L (98-107); Glucose 85 mg/dl (70-99); HDL Cholesterol 42 mg/dl; LDL Cholesterol, Calculated 62 mg/dl; Potassium 4.1 mmol/L (3.5-5.1); Sodium 136 mmol/L (135-145); Total Protein 7.4 g/dl (6.3-8.2); Uric Acid 4.9 mg/dl (2.5-6.2); Very Low Density Lipoprotein 38 mg/dl (0-30); eGFR 46.33
[2025-09-16 15:21] LABS: Microalb - Urine Creatinine 19.500 mg/dl
[2025-09-16 15:25] LABS: Microalbumin, Random Urine < 0.6 mg/dl (0.6-1.7)
[2025-09-16 15:48] LABS: CA 125 < 5.5 U/mL (0-35)
[2025-09-16 15:55] LABS: Vitamin B12 917 pg/ml (239-931)
[2025-09-17 10:04] LABS: Glycohemoglobin (HgbA1c) 5.3 % (4.0-5.9)
== END ==
LOC: WDC 13:12
PROVIDERS: Obstetrics & Gynecology Gynecologic Oncology; ATTENDING PHYSICIAN Physician Assistant
DX: C56.3 Malignant neoplasm of bilateral ovaries (principal); C56.1 Malignant neoplasm of right ovary; K43.9 Ventral hernia without obstruction or gangrene; J44.9 Chronic obstructive pulmonary disease, unspecified; I10 Essential (primary) hypertension; Z85.43 Personal history of malignant neoplasm of ovary; E66.9 Obesity, unspecified; I50.32 Chronic diastolic (congestive) heart failure; E78.2 Mixed hyperlipidemia; E11.40 Type 2 diabetes mellitus with diabetic neuropathy, unspecified; Z87.39 Personal history of other diseases of the musculoskeletal system and connective tissue; E11.9 Type 2 diabetes mellitus without complications; Z12.31 Encounter for screening mammogram for malignant neoplasm of breast
CPT/HCPCS: 36415; 80053; 80061; 82043; 82570; 82607; 83036; 84443; 84550; 85025; 86304

== ENCOUNTER → 2025-09-20 09:35 | Outpatient (REF) | payer OTHER, SELFPAY | LOC: RAD 09:35 | PROVIDERS: ATTENDING PHYSICIAN Obstetrics & Gynecology Gynecologic Oncology; FAMILY PHYSICIAN Physician Assistant | DX: C56.3 Malignant neoplasm of bilateral ovaries (principal); C56.1 Malignant neoplasm of right ovary; K43.9 Ventral hernia without obstruction or gangrene | CPT/HCPCS: 71260; 74177; Q9967 ==